=== PATIENT | male | born 1930 | race Caucasian/White ===

== ENCOUNTER 2016-07-05 23:56 | Emergency (ER) | payer SELFPAY ==
--- NOTE | ~2016-07-05 | US85 ---
[facility] A Service of [facility] RADIOLOGY TEXT RESULTS PATIENT: LADARIUS ZALDIVAR LOCATION: [facility] : 31 UNIT #: [id number] AGE: [address]: Maggy Moran MD SEX: M ORDER DR: [id number] [facility] [address] [place], [place] [address] [id number] MR#: [id number] Acc #: [id number] NAME: LADARIUS ZALDIVAR. : 1930 SEX: M STUDY DATE/TIME: 07/05/2016 22:52 UNIT: TUTU ROOM: STUDY DESCRIPTION: [employer] Stdy Attending Physician: Maggy Moran M.D. Ordering Physician: Federico Phipps M.D. MEDICAL IMAGING REPORT This report is preliminary unless electronic signature is present EXAM Right lower extremity Doppler venous ultrasound. DATE 07/05/2016 HISTORY Thigh pain for 1 day. COMPARISON None TECHNIQUE Venous ultrasound examination of the right lower extremity was performed using grayscale, spectral Doppler and color flow Doppler imaging. FINDINGS The examination is negative. There is no evidence of right lower extremity deep venous thrombus from the groin to the lower calf. Visualized greater saphenous vein is also patent. IMPRESSION Negative examination. No evidence of right lower extremity deep venous thrombosis. Dictated by... Padma Bingham M.D. THIS IS AN ELECTRONICALLY VERIFIED REPORT Padma Bingham M.D. at 07/06/2016 10:02 PM [facility] A Service of [facility] RADIOLOGY TEXT RESULTS PATIENT: LADARIUS ZALDIVAR LOCATION: [facility] : 31 UNIT #: [id number] AGE: [address]: Maggy Moran MD SEX: M ORDER DR: TD: 07/06/2016 01:32 JOB #: [id number] MEDICAL IMAGING REPORT Page 1 of 1 COPY
== END 2016-07-06 00:01 | disposition home or self-care (01) ==
LOC: CED 23:56
DX: S76.911A Strain of unspecified muscles, fascia and tendons at thigh level, right thigh, initial encounter (principal); I10 Essential (primary) hypertension; E78.5 Hyperlipidemia, unspecified; X50.1XXA Overexertion from prolonged static or awkward postures, initial encounter
CPT/HCPCS: 93971; 99284

== ENCOUNTER 2016-07-25 13:28 | Inpatient (IN) | payer MEDICARE ==
--- NOTE | ~2016-07-25 | US84 ---
[id number] [facility]. [facility] [address] [place], [place] [address] [id number] I MR#: [id number] Acc #: [id number] NAME: LADARIUS ZALDIVAR : 1930 SEX: M STUDY DATE/TIME: 07/28/2016 15:29 UNIT: C3A PCU ROOM: 323 STUDY DESCRIPTION: US LE Veins Complete Terry Stdy Attending Physician: Farzaneh Dodd M.D. Ordering Physician: Farzaneh Dodd M.D. MEDICAL IMAGING REPORT This report is preliminary unless electronic signature is present EXAM Bilateral lower extremity Doppler venous ultrasound 07/28/2016 HISTORY Fell from bath at rehab. Broke right hip. Bright-arthroplasty 07/19/2016. Right extremity pain and swelling for 10 days. COMPARISON Right lower extreme Doppler venous ultrasound 07/05/2016. TECHNIQUE Venous ultrasound examination of both lower extremities was performed using grayscale, spectral Doppler and color flow Doppler imaging. FINDINGS The examination is negative. There is no evidence of deep venous thrombus from the groin to the lower calf bilaterally. Visualized greater saphenous veins are also patent. Small amount fluid is seen within the right groin soft tissues, 1 component measuring about 2-.8 x 0.8 x 0.6 cm, may represent postoperative seroma. IMPRESSION Negative examination. No evidence of lower extremity deep venous thrombosis. Dictated by... Padma Bingham M.D. THIS IS AN ELECTRONICALLY VERIFIED REPORT Padma Bingham M.D. at 08/01/2016 8:40 AM ISSA/landry TD: 07/28/2016 22:53 JOB #: [id number] MEDICAL IMAGING REPORT Page 1 of 1 COPY
--- NOTE | ~2016-07-25 | CO ---
Unit #: [id number] #: [id number] Patient: LADARIUS ZALDIVAR [id number] [address] [address] [id number] I MR#: [id number] NAME: LADARIUS ZALDIVAR ROOM: 323 Age: 85 Sex: M Admission Date: 07/25/2016 : 1930 Attending Physician: Buck Tan M.D. [facility] Consult[facility] Date: 07/26/2016 CONSULTATION REPORT CHIEF COMPLAINT Fall from bed at rehab. HISTORY OF PRESENT ILLNESS This is an 85-year-old white male with a past medical history of hypertension, hyperlipidemia, and degenerative disk disease, presented to the emergency room yesterday status post fall from bed at rehab. The patient is unable to hold conversation, therefore the history was taken from the History and Physical from the emergency room. It appears patient was hospitalized at [facility] 07/18/2016 for a right femoral neck fracture and underwent surgery 07/19/2016. His family reports the patient has been confused since his surgery. He was/has been at [facility] for rehabilitation. PAST MEDICAL HISTORY 1. Admitted at [facility] for a right femoral neck fracture 07/18/2016. Right anterior hip hemiarthroplasty on 07/19/2016 and discharged to rehab where he is at currently. 2. Hypertension. 3. Hyperlipidemia. 4. Degenerative disk disease. PAST SURGICAL HISTORY 1. Eye surgery. 2. Right hip surgery. HOME MEDICATIONS 1. Pantoprazole 40 mg daily. 2. Prednisone 20 mg daily. 3. Dorzolamide and timolol eye drops. 4. Norvasc 10 mg daily. 5. Cyanocobalamin one-half tab daily. 6. Prednisone eye drops q.i.d. 7. Augmentin t.i.d. 8. Eliquis 2.5 mg tablet b.i.d. 9. Aspirin 325 mg b.i.d. 10. Docusate 100 mg b.i.d. 11. Artificial Tears b.i.d. 12. Lipitor 20 mg daily. 13. ProAir q.6 h. p.r.n. ALLERGIES No known drug allergies. Unit #: [id number] #: [id number] Patient: LADARIUS ZALDIVAR SOCIAL HISTORY Patient in rehab. Code status is FULL CODE at the emergency room. FAMILY HISTORY Not available or not applicable. REVIEW OF SYSTEMS Unobtainable. PHYSICAL EXAMINATION VITAL SIGNS: Temperature 98.2, pulse 98, respirations 22, O2 96%, blood pressure 120/69. GENERAL: Lethargic white male who is not oriented. LUNGS: Breathing nonlabored. HEART: Regular rate and rhythm. EXTREMITIES: Right hip with Steri-Strips in place. Incision is clean, dry and intact, nontender to palpation. No ecchymosis or erythema or evidence of infection. PSYCHIATRIC: Normal mood/affect. DIAGNOSTIC STUDIES LABORATORY: CBC within normal limits. Vitamin B12 and folate within normal limits. CMP within normal limits. Total CK within normal limits. TSH within normal limits. Troponin within normal limits. Lactic acid within normal limits. IMAGING: Right hip x-ray shows stable bipolar hip prosthesis, acetabular component also stable. No evidence of hardware loosening or malalignment. CT of the head with no acute findings. Chest x-ray with increased airspace opacities. ASSESSMENT AND PLAN This is an 85-year-old white male with altered mental status, status post fall at rehab and eight days status post right hip arthroplasty. PLAN 1. Continue fall precautions. May weight bear as tolerated. 2. Follow up with Dr. Leonard at [facility] as soon as possible post discharge. Stable to discharge from orthopedic standpoint. Dictated by... Opal Castellon PA-C for Kamla Trujillo/home TD: 07/26/2016 16:07 JOB #: [id number] Unit #: [id number] #: [id number] Patient: LADARIUS ZADLIVAR CONSULTATION REPORT Page 1 of 1 X OPAL CASTELLON CONSULTATION REPORT
--- NOTE | ~2016-07-25 | CR72 ---
[facility] A Service of [facility] RADIOLOGY TEXT RESULTS PATIENT: LADARIUS ZALDIVAR LOCATION: [facility] 323-01 : 31 UNIT #: [id number] AGE: [address]: Buck Tan MD SEX: M ORDER DR: [id number] [facility] [address] [place], [place] [address] [id number] I MR#: [id number] Acc #: [id number] NAME: LADARIUS ZALDIVAR. : 1930 SEX: M STUDY DATE/TIME: 07/25/2016 18:08 UNIT: [facility] ROOM: 65881 STUDY DESCRIPTION: CR Chest Single View Portable Attending Physician: Aby Prieto M.D. Referring Physician: Reymundo Rubi M.D. Ordering Physician: Federico Phipps M.D. [facility] MED[facility] IMAGING REPORT This report is preliminary unless electronic signature is present EXAM Portable chest x-ray, 07/25/2016. HISTORY Cough. Yesterday fell. Surgery 1 week ago. FINDINGS 2 AP right anterior oblique views of the chest are presented. No prior chest radiographs for comparison. The heart is probably mildly enlarged. No clearly acute bony abnormalities seen. Lung volumes moderate. Increased interstitial and airspace markings throughout the right lung more pronounced at the right lung base with less pronounced patchy densities at the left lung base. The appearance is somewhat nonspecific. The possibility of asymmetric pulmonary edema with interstitial and airspace components could be considered. Bilateral pneumonia more extensive and more pronounced in the right lung than left could be considered as well. If the patient is showing clinical signs and symptoms of pneumonia, given distribution and reported history, correlate with any clinical concern for aspiration. There is no dense airspace consolidation. No pleural effusion, pneumothorax or suspicious nodule. Follow up to radiographic resolution is recommended. Dictated by... Erick Munroe M.D. THIS IS AN ELECTRONICALLY VERIFIED REPORT Erick Munroe M.D. at 07/26/2016 10:26 PM WARD/quin TD: 07/26/2016 00:07 [facility] A Service of [facility] RADIOLOGY TEXT RESULTS PATIENT: LADARIUS ZALDIVAR LOCATION: [facility] 323-01 : 31 UNIT #: [id number] AGE: [address]: Buck Tan MD SEX: M ORDER DR: JOB #: [id number] MEDICAL IMAGING REPORT Page 1 of 1 COPY
--- NOTE | ~2016-07-25 | CR151 ---
[facility] A Service of [facility] & [facility] RADIOLOGY TEXT RESULTS PATIENT: LADARIUS ZALDIVAR LOCATION: A 323-01 : 31 UNIT #: [id number] AGE: [address]: Buck Tan MD SEX: M ORDER DR: [id number] [facility] [address] [place], [place] [address] [id number] I MR#: [id number] Acc #: [id number] NAME: LADARIUS ZALDIVAR. : 1930 SEX: M STUDY DATE/TIME: 07/25/2016 17:59 UNIT: CEDOF ROOM: 70458 STUDY DESCRIPTION: CR Hip Min 2 Views Rt Attending Physician: Aby Prieto M.D. Ordering Physician: Federico Phipps M.D. Primary Care Physician: [facility] MEDICAL IMAGING REPORT This report is preliminary unless electronic signature is present EXAM Right hip series, 07/25/2016 HISTORY Yesterday fall. Right hip surgery 1 week ago. FINDINGS AP radiograph of the pelvis is presented with attempted frog-leg views of the right hip. The biomass plant manager indicates the patient was unable to fully assist with the examination. I have no prior studies for comparison. Diminished bony mineralization. Mild degenerative changes lower lumbar spine. Bony ring of pelvis is intact. Visualized left femur intact with mild narrowing left hip joint. The patient is status post right hip arthroplasty. The acetabular component has an orientation slightly rotated in a counterclockwise direction; however, this could be the desired postoperative positioning in this patient. I have no prior studies for comparison. Comparison with prior study is recommended given patient's reported trauma. The orthopedic hardware remains normally located. There is no evidence of acute post-traumatic right femoral fracture. The periarticular soft tissues are unremarkable. Visualized bowel gas pattern is normal. Dictated by... Erick Munroe M.D. THIS IS AN ELECTRONICALLY VERIFIED REPORT Erick Munroe M.D. at 07/26/2016 10:26 PM WARD/frances TD: 07/26/2016 00:08 JOB #: [id number] [facility] A Service of [facility] & [facility] RADIOLOGY TEXT RESULTS PATIENT: LADARIUS ZALDIVAR LOCATION: [facility] 323-01 : 31 UNIT #: [id number] AGE: [address]: Buck Tan MD SEX: M ORDER DR: MEDICAL IMAGING REPORT Page 1 of 1 COPY
--- NOTE | ~2016-07-25 | CR72 ---
[facility] A Service of [facility] RADIOLOGY TEXT RESULTS PATIENT: LADARIUS ZALDIVAR LOCATION: [facility] 323- : 31 UNIT #: [id number] AGE: [address]: Buck Tan MD SEX: M ORDER DR: [id number] [facility] [address] [place], [place] [address] [id number] I MR#: [id number] Acc #: [id number] NAME: LADARIUS ZALDIVAR : 1930 SEX: M STUDY DATE/TIME: 07/27/2016625 UNIT: [address] ROOM: [facility] STUDY DESCRIPTION: CR Chest Single View Portable Attending Physician: Buck Tan M.D. Ordering Physician: Buck Tan M.D. Primary Care Phys[facility] MED[facility] IMAGING REPORT This report is preliminary unless electronic signature is present EXAM Chest, portable, 07/27/2016, 0626 hours. CLINICAL HISTORY 85-year-old man fell who fell today and yesterday with confusion and altered mental status. COMPARISON 07/25/2016 FINDINGS Portable upright chest demonstrates stable [id number] cardiomegaly and tortuous aorta. There is pulmonary venous distension. There is mild pulmonary venous distension but overall decrease in interstitial prominence in the right lung compared to the left lung since 07/25/2016. IMPRESSION Stable cardiomegaly and tortuous aorta. There is mild pulmonary venous distension with overall decrease in bilateral interstitial changes since 07/25/2016, likely improving edema. There is no effusion or pneumothorax. Dictated by... Fabi Pang M.D. THIS IS AN ELECTRONICALLY VERIFIED REPORT Fabi Pang M.D. at 07/27/2016 2:35 PM HEBER/debbie TD: 07/27/2016 10:05 JOB #: [id number] [facility] A Service [facility] RADIOLOGY TEXT RESULTS PATIENT: LADARIUS ZALDIVAR LOCATION: [facility] 323-01 : 31 UNIT #: [id number] AGE: [address]: Buck Tan MD SEX: M ORDER DR: MEDICAL IMAGING REPORT Page 1 of 1 COPY
--- NOTE | ~2016-07-25 | CT71 ---
[facility] A Service of [facility] RADIOLOGY TEXT RESULTS PATIENT: LADARIUS ZALDIVAR LOCATION: [facility] : 31 UNIT #: [id number] AGE: [address]: Aby Prieto MD SEX: M ORDER DR: [id number] [facility] [address] [place], [place] [address] [id number] I MR#: [id number] Acc #: [id number] NAME: LADARIUS ZALDIVAR. : 1930 SEX: M STUDY DATE/TIME: 07/25/2016 15:47 UNIT: C[facility] ROOM: 74729 STUDY DESCRIPTION: CT Head Wo Contrast Attending Physician: Aby Prieto M.D. Ordering Physician: Yfn Bryson M.D. MEDICAL IMAGING REPORT This report is preliminary unless electronic signature is present EXAM CT head 07/25/2016 HISTORY History fell from bed today. New onset confusion, headache. TECHNIQUE CT head performed skull base through vertex without intravenous contrast. This CT exam was performed with one or more of the following radiation dose reduction techniques: automatic exposure control, adjustment of mA and/or kV according to patient size, and iterative reconstruction. COMPARISON STUDIES No prior CTs of head for comparison at this institution. FINDINGS Brainstem is unremarkable. Cerebellum and cerebral hemispheres show overall preservation of johnson matter-white matter differentiation. No intracranial hemorrhage. No evidence of acute cortical ischemia. Midline structures are nondisplaced. The basal ganglia are intact. The ventricles, cisterns and sulci show mild generalized enlargement consistent with mild generalized atrophy. No intra- or extraaxial mass effect or abnormal intracranial fluid collection. There are cavernous carotid arterial calcifications. Visualized intraorbital soft tissues unremarkable. The visualized paranasal sinuses and mastoid air cells are clear. No fracture. No extracranial acute appearing soft tissue abnormality. Some images degraded by motion artifact. IMPRESSION [facility] A Service of [facility] RADIOLOGY TEXT RESULTS PATIENT: LADARIUS ZALDIVAR LOCATION: [facility] : 31 UNIT #: [id number] AGE: [address]: Aby Prieto MD SEX: M ORDER DR: 1. Motion-degraded study. No acute abnormalities seen in the brain. If the patient has ongoing neurologic symptoms, follow-up imaging would be recommended. 2. Mild atrophic change. 3. Cavernous carotid arterial calcifications. 4. No fracture. Dictated by... Erick Munroe M.D. THIS IS AN ELECTRONICALLY VERIFIED REPORT Erick Munroe M.D. at 07/25/2016 10:50 PM WARD/landry TD: 07/25/2016 21:45 JOB #: [id number] MEDICAL IMAGING REPORT Page 1 of 1 COPY
--- NOTE | ~2016-07-25 | DS ---
Unit #: [id number] #: [id number] Patient: LADARIUS ZALDIVAR [id number] [facility]. [place] [id number] [facility]. [place], [place] [address] [id number] I MR#: [id number] NAME: LADARIUS ZALDIVAR. ROOM: 573 Age: 85 Sex: M Admission Date: 07/25/2016 : 1930 Discharge Date: 08/01/2016 Attending Physician: Farzaneh Dodd M.D. Primary Care Physician: [facility]. DISCHARGE SUMMARY ADDENDUM Please make note that we are still waiting for rehab bed and that is why the patient's discharge is on hold. Hopefully the patient will have a bed today and will be transferred to rehab. His lab work today revealed sodium 137, potassium 3.3 and creatinine 0.9. We will give him a dose of potassium. We will also try to wean off his oxygen. I have tried to call the patient's daughter again, but I discussed with the laboratory animal caretaker who will follow up. Dictated by... Kamla Christopher TD: 08/01/2016 11:25 JOB #: [id number] DISCHARGE SUMMARY Page 1 of 1 X Farzaneh Dodd MD DISCHARGE SUMMARY
--- NOTE | ~2016-07-25 | DS ---
Unit #: [id number] #: [id number] Patient: LADARIUS ZALDIVAR [id number] [facility]. [address] [address] [id number] I MR#: [id number] NAME: LADARIUS ZALDIVAR. ROOM: 573 Age: 85 Sex: M Admission Date: 07/25/2016 : 1930 Discharge Date: 07/30/2016 Attending Physician: Farzaneh Dodd M.D. Primary Care Physician: [facility]. DISCHARGE SUMMARY DIAGNOSIS ON ADMISSION Increased confusion. DIAGNOSES ON DISCHARGE 1. Status post fall, improved. 2. Acute toxic metabolic encephalopathy, improved. 3. Acute bronchitis. 4. History of recent right hip arthroplasty. 5. Sepsis. 6. Hypertension. 7. Hyperlipidemia. 8. Degenerative disk disease. 9. Probable pneumonia. DIAGNOSTIC STUDIES LABS: The patient's creatinine is 0.7, sodium 141, potassium 3.6. B12 level was 371. TSH was 2.23. WBC is 9.8, hemoglobin is 12.4, platelet count is 276. Blood culture did not reveal any growth so far. IMAGING: Bilateral lower extremity venous Dopplers were negative. CT chest revealed trace pleural effusion in lung bases; bilateral lower lobe subsegmental atelectasis. HOSPITAL COURSE This 85-year-old male was admitted from [facility] after having a fall with increased confusion. Details are as per admission H and P. Recent right hip fracture and surgery. The patient was seen by surgery in consultation, and no acute issues were found, and it was advised to continue the rehab. Altered mental status. It was likely secondary to acute toxic metabolic encephalopathy. It has improved. Probable pneumonia. Patient had probable pneumonia. Was treated with antibiotics and is doing much better now. Bilateral leg swelling. Venous Dopplers were negative. We will have the patient on low-dose Lasix. Today, the patient is comfortable, is not in any acute distress. He is hard of hearing but follows commands. Unit #: [id number] #: [id number] Patient: LADARIUS ZALDIVAR CONDITION Stable. ACTIVITIES As tolerated. DISCHARGE MEDICATIONS 1. DuoNeb Mini-Neb treatment q.4 hours p.r.n. 2. Eliquis 2.5 mg p.o. b.i.d. per ortho. 3. Colace 100 mg p.o. daily. 4. Lasix 40 mg every morning. 5. Lipitor 20 mg p.o. q.h.s. 6. Protonix 40 mg daily. 7. Vitamin B12 - 50 mcg p.o. daily. 8. Doxycycline 100 mg p.o. b.i.d. for 3 days. NOTE: Please make note that the patient is on Eliquis, which I am not sure if he was taking it prior to admission or is for DVT prophylaxis. Kindly clarify it with the patient's primary care physician or family. I tried to call the patient's family. I have discontinued the patient's enteric-coated aspirin 325 mg b.i.d. because of being on Eliquis. If the patient's Eliquis is discontinued in the future, then he should be restarted on aspirin. DISPOSITION Patient will be transferred to rehab unit. NOTE: Please feel free to call us if there are questions regarding this hospitalization. Dictated by... Kamla Christopher/pamela TD: 07/30/2016 11:16 JOB #: [id number] DISCHARGE SUMMARY Page 1 of 1 X Farzaneh Dodd MD X DISCHARGE SUMMARY
--- NOTE | ~2016-07-25 | CT57 ---
[facility] A Service of [facility] RADIOLOGY TEXT RESULTS PATIENT: LADARIUS ZALDIVAR LOCATION: [facility] : 31 UNIT #: [id number] AGE: [address]: Farzaneh oDdd MD SEX: M ORDER DR: [id number] [facility] [address] [place], [place] [address] [id number] I MR#: [id number] Acc #: [id number] NAME: LADARIUS ZALDIVAR : 1930 SEX: M STUDY DATE/TIME: 07/27/2016 11:50 UNIT: A PCU ROOM: 323 STUDY DESCRIPTION: CT Chest Wo Cont Attending Physician: Buck Tan M.D. Ordering Physician: Buck Tan M.D. Primary Care Physician: [facility], MEDICAL IMAGING REPORT This report is preliminary unless electronic signature is present EXAM CT chest without contrast. Pleural fluid cells. There are [id number] CT of the chest without contrast INDICATIONS Minus pneumonia and shortness of breath today. TECHNIQUE CT of the chest was performed without contrast. Coronal and sagittal reformatted images were obtained. No comparisons are available. This CT exam was performed with one or more of the following radiation dose reduction techniques: automatic exposure control, adjustment of mA and/or kV according to patient size, and iterative reconstruction. FINDINGS There is trace pleural fluid in the lung bases. There is bilateral lower lobe atelectasis. There is no lymphadenopathy. There is a large calcified left hilar lymph node. Coronary artery calcifications. Moderate sized hiatal hernia containing mostly fat. Limited imaging of the upper abdomen is unremarkable. The bone windows are unremarkable. IMPRESSION Trace pleural fluid. The lung bases with bilateral lower lobe subsegmental atelectasis [facility] A Service [facility] RADIOLOGY TEXT RESULTS PATIENT: LADARIUS ZALDIVAR LOCATION: [facility] : 31 UNIT #: [id number] AGE: [address]: Farzaneh Dodd MD SEX: M ORDER DR: Dictated by... Emerson Leonard M.D. THIS IS AN ELECTRONICALLY VERIFIED REPORT Emerson Leonard M.D. at 07/28/2016 9:03 AM HERIBERTO/lianna TD: 07/27/2016 13:31 JOB #: [id number] MEDICAL IMAGING REPORT Page 1 of 1 COPY
--- NOTE | ~2016-07-25 | HP ---
Unit #: [id number] #: [id number] Patient: LADARIUS ZALDIVAR [id number] [facility]. [place], [place] [address] [id number] MR#: [id number] NAME: LADARIUS ZALDIVAR. ROOM: 75205 Age: 85 Sex: M Admission Date: 07/25/2016 : 1930 Attending Physician: Aby Prieto M.D. [facility] HISTORY AND PHYSICAL CHIEF COMPLAINT Fall from bed at [facility]. HISTORY OF PRESENT ILLNESS The patient is an 85-year-old male with a past medical history of hypertension, hyperlipidemia, and degenerative disc disease, who presented to the emergency department from rehab for evaluation of the above. History is obtained from chart review and discussion with ER staff due to the patient's altered mental status. There is currently no family at bedside. Will talk to family when available. The patient was apparently hospitalized at [facility] on July 18, 2016, for right femoral neck fracture. He underwent right hip arthroplasty on July 19, 2016. He was discharged to [facility] for rehab. Per ER documentation, the family states that the patient has been confused since surgery. Today, he slid out of his wheelchair to the ground. He was brought to the emergency department for further evaluation. In the emergency department, the patient was somewhat combative and agitated. He is currently in restraints. He received fentanyl 25 mcg, as well as 0.5 mg of Ativan. At the time of my evaluation, he is lethargic. He is moving all extremities. He is unable to provide a history. In the emergency department, right hip x-ray was done and showed that the patient is status post right hip arthroplasty. The radiologist comments that the acetabular component is slightly rotated. Chest x-ray shows findings concerning for possible pneumonia with airspace opacities bilaterally, right greater than left. CT of the head shows nothing acute. Notable laboratory data includes a white blood cell count of 16.4. He is being admitted to [facility] for evaluation and further treatment. In addition to the above medications, the patient received a total of one liter of normal saline in the emergency department. One gram of Rocephin is ordered. PAST MEDICAL HISTORY 1. Admission to [facility] July 18, 2016, for right femoral neck fracture. He underwent right anterior hip hemiarthroplasty on July 19, 2016. He was discharged to rehab where he is currently. 2. Hypertension. 3. Hyperlipidemia. 4. Degenerative disc disease. PAST SURGICAL HISTORY 1. Eye surgery. Unit #: [id number] #: [id number] Patient: LADARIUS ZALDIVAR 2. Right hip surgery. SOCIAL HISTORY The patient is currently at rehab. His code status is a Full Code per ER documentation. FAMILY HISTORY Currently obtainable. ALLERGIES No known allergies. HOME MEDICATIONS 1. Pantoprazole 40 mg daily. 2. Prednisone 20 mg daily. 3. Dorzolamide and timolol eyedrops daily. 4. Norvasc 10 mg daily. 5. Cyanocobalamin 1/2 tablet daily. 6. Prednisolone eyedrops 4 times daily. 7. Augmentin 3 times daily. 8. Eliquis 2.5 mg twice daily. 9. Aspirin 325 mg twice daily. 10. Docusate 100 mg twice daily. 11. Artificial Tears twice daily. 12. Lipitor 20 mg daily. 13. ProAir q.6 hours p.r.n. REVIEW OF SYSTEMS A complete review of systems is unobtainable from the patient due to altered mental status. PHYSICAL EXAMINATION VITAL SIGNS: Temperature is 98, pulse 120, respirations 24, blood pressure 118/69, and oxygen saturation 92% on room air. GENERAL: Patient is a male who is lethargic. HEENT: Head is atraumatic. Mucous membranes are moist. NECK: Supple. Trachea is midline. CARDIOVASCULAR: Regular rate and rhythm. LUNGS: A few scattered rhonchi. Breathing is not labored. ABDOMEN: Soft and nontender with bowel sounds present in all four quadrants. EXTREMITIES: No pedal edema. The patient does have an incision in the right hip area that is clean, dry, and intact. NEUROLOGIC: Patient was apparently quite agitated in the emergency department requiring restraints. He was moving all extremities. He is currently lethargic. PSYCHIATRIC: Unable to assess. SKIN: Skin of examined areas is warm and dry. DIAGNOSTIC STUDIES LABORATORY: Comprehensive metabolic panel is notable for a glucose of 115 and albumin is 3.3. Complete blood count notable for a white blood cell count of 16.4. Urinalysis is essentially negative. Urine toxicology screen is negative. IMAGING: Right hip x-ray shows that the patient is status post right hip arthroplasty. The acetabular component is slightly rotated. CT of the head shows nothing acute. Chest x-ray shows increased airspace opacities Unit #: [id number] #: [id number] Patient: LADARIUS ZALDIVAR bilaterally, right greater than left. ASSESSMENT The patient is an 85-year-old male with: 1. Altered mental status. 2. Status post fall at rehab. 3. Status post right hip arthroplasty (July 19, 2016). The x-ray today showed that the acetabular component was slightly rotated. The emergency room physician, Dr. Medellin, spoke with Dr. Leonard at [facility] regarding the x-ray findings. He stated that there was no reason for transfer. 4. Healthcare-associated pneumonia. Rocephin has been ordered. 5. Sepsis. 6. Hypertension. 7. Hyperlipidemia. 8. Degenerative disc disease. PLAN 1. Admit to intermediate level. 2. N.p.o. until speech evaluation. 3. Speech Therapy to evaluate and treat. 4. Normal saline at 75 mL/hour. 5. TSH, B12, and folate. 6. Neuro checks. 7. Bedrest. 8. Fall precautions. 9. Blood cultures x2. 10. Sputum culture and sensitivity. 11. Supplemental oxygen. 12. Procalcitonin level. 13. Streptococcal and legionella urine antigens. 14. DuoNebs q.4 hours p.r.n. 15. Sepsis protocol with stat lactic acid. 16. Vancomycin IV, tobramycin IV, and Zosyn IV for healthcare-associated pneumonia pending further workup. 17. Check EKG and cardiac enzymes. 18. Get postop hip x-ray from [facility] for comparison with current hip x-ray. 19. Consult Dr. Kay regarding abnormal hip x-ray. 20. Repeat labs in the morning. 21. Additional workup and consultants based on above. 1. Dictated by Aby Prieto M.D. GUADALUPE/joyce TD: 07/25/2016 21:11 JOB #: [id number] Unit #: [id number] #: [id number] Patient: LADARIUS ZALDIVAR HISTORY AND PHYSICAL Page 1 of 1 X Aby Prieto MD X HISTORY AND PHYSICAL
--- NOTE | ~2016-07-25 | EKG ---
PATIENT: LADARIUS ZALDIVAR UNIT #: [id number] Ventricular Rate: 94 BPM Atrial Rate: 94 BPM P-R Interval: 214 ms QRS Duration: 130 ms Q-T Interval: 410 ms QTC Calculation(Bezet): 512 ms P [place]: 64 degrees Calculated R [place]: 44 degrees Calculated T [place]: 15 degrees Diagnosis Line: Sinus rhythm with 1st degree A-V block Diagnosis Line: Right bundle branch block with repolarization Diagnosis Line: abnormality Baseline wander Diagnosis Line: Abnormal ECG Diagnosis Line: Diagnosis Line: Confirmed by CHI MORENO MD ([id number]) on 07/27/2016 Diagnosis Line: 5:57:14 PM INTERPRETING MD: JOSH DUTTON
[2016-07-25] MEDS ORDERED: PANTOPRAZOLE SO40 MG PO (14:19)
[2016-07-25] MEDS ORDERED: DORZOLAMIDE-TIM10 ML OU (14:20)
[2016-07-25] MEDS ORDERED: DELTASONE20 MG PO (14:20)
[2016-07-25] MEDS ORDERED: NORVASC10 MG PO (14:21)
[2016-07-25] MEDS ORDERED: CYANOCOBALAMI100 MCG PO (14:22)
[2016-07-25] MEDS ORDERED: PRED FORTE1 ML OU (14:23)
[2016-07-25] MEDS ORDERED: ASPIRIN ENTERI325 M1 PO (14:24)
[2016-07-25] MEDS ORDERED: AMOX-CLAV 500-1 EACH PO (14:24)
[2016-07-25] MEDS ORDERED: ELIQUIS2.5 MG PO (14:24)
[2016-07-25] MEDS ORDERED: ARTIFICIAL TEAR15 M9 OU (14:25)
[2016-07-25] MEDS ORDERED: DOC-Q-LACE100 MG PO (14:25)
[2016-07-25] MEDS ORDERED: LIPITOR20 MG PO (14:26)
[2016-07-25] MEDS ORDERED: PROAIR HFA8.5 GM PO (14:27)
[2016-07-25 14:56] LABS: BASOPHIL% 0.3 % (0-2.5); HEMATOCRIT 44.9 % (38.0-50.0); HEMOGLOBIN 14.2 gm/dL (13.0-16.0); LYMPHOCYTE# 0.5 X10e3 (1.0-3.5); LYMPHOCYTE% 3.1 % (17.0-45.0); MEAN CELL VOLUME 92.1 FL (83-96); MEAN CORPUSCULAR HEMOGLOBIN 29.1 PG (28-34); MEAN CORPUSCULAR HGB CONC 31.6 g/dL (30-36); MONOCYTE# 1.1 X10e3 (0-1.0); MONOCYTE% 6.5 % (3.0-12.0); NEUTROPHIL# 14.7 X10e3 (1.5-7.1); NEUTROPHIL% 90.1 % (40-75); PLATELET COUNT 342 X10e3 (140-420); RED BLOOD COUNT 4.88 X10e (3.90-5.60); RED CELL DISTRIBUTION WIDTH 14.7 % (11.0-15.5); WHITE BLOOD COUNT 16.4 X10e3 (4.0-10.5)
[2016-07-25 15:01] LABS: DIFF IND YES
[2016-07-25 15:15] LABS: ALBUMIN SERUM 3.3 g/dL (3.5-5.0); BILIRUBIN,TOTAL 1.4 mg/dL (0.2-2.0); CALCIUM SERUM 9.1 mg/dL (8.4-10.2); GLOM FILT RATE Estimated 68.8 mL/min (>60); POTASSIUM 5.1 mmol/L (3.5-5.1); PROTEIN TOTAL SERUM 7.3 g/dL (6.0-8.3)
[2016-07-25 15:33] LABS: URINE SOURCE CLEAN CATCH
[2016-07-25 15:38] LABS: URINE APPEARANCE CLEAR; URINE BILIRUBIN NEG (NEG); URINE BLOOD NEG (NEG); URINE COLOR YELLOW; URINE GLUCOSE NEG (NEG); URINE KETONE NEG (NEG); URINE LEUKOCYTE ESTERASE NEG (NEG); URINE NITRATE NEG (NEG); URINE PH 7.5 (5-8); URINE PROTEIN NEG (NEG); URINE SPECIFIC GRAVITY 1.015 (1.003-1.035)
[2016-07-25 15:41] LABS: ANISOCYTOSIS SL
[2016-07-25 15:45] LABS: PLATELET ESTIMATE NORMAL (NORMAL)
[2016-07-25 15:47] LABS: CULTURE INDICATED? NO
[2016-07-25 15:49] LABS: AMPHETAMINE NEG (NEG); BARBITURATES NEG (NEG); BENZODIAZEPINES NEG (NEG); COCAINE NEG (NEG); MARIJUANA NEG (NEG); OPIATES NEG (NEG); TRICYCLIC ANTIDEPRESSANTS NEG (NEG); U METHADONE NEG (NEG)
[2016-07-25 21:41] LABS: PROCALCITONIN 0.16 NG/ML
[2016-07-25 21:43] LABS: %MB 3.5 % (0.0-4.0); MB 3.3 ng/ml
[2016-07-26 03:22] LABS: BASOPHIL% 0.1 % (0-2.5); EOSINOPHIL# 0.1 X10e3 (0-0.7); EOSINOPHIL% 0.8 % (0.0-7.0); HEMATOCRIT 39.6 % (38.0-50.0); HEMOGLOBIN 12.5 gm/dL (13.0-16.0); LYMPHOCYTE% 9.4 % (17.0-45.0); MEAN CELL VOLUME 93.2 FL (83-96); MEAN CORPUSCULAR HEMOGLOBIN 29.4 PG (28-34); MEAN CORPUSCULAR HGB CONC 31.5 g/dL (30-36); MEAN PLATELET VOLUME 8.5 FL (6.5-11.5); MONOCYTE# 1.2 X10e3 (0-1.0); MONOCYTE% 11.6 % (3.0-12.0); NEUTROPHIL# 8.2 X10e3 (1.5-7.1); NEUTROPHIL% 78.1 % (40-75); PLATELET COUNT 291 X10e3 (140-420); RED BLOOD COUNT 4.24 X10e (3.90-5.60); WHITE BLOOD COUNT 10.5 X10e3 (4.0-10.5)
[2016-07-26 03:23] LABS: DIFF IND NO
[2016-07-26 04:03] LABS: ALBUMIN SERUM 2.7 g/dL (3.5-5.0); BILIRUBIN,TOTAL 0.9 mg/dL (0.2-2.0); CALCIUM SERUM 8.1 mg/dL (8.4-10.2); CREATININE SERUM 0.9 mg/dL (0.6-1.4); GLOM FILT RATE Estimated 78.2 mL/min (>60); POTASSIUM 4.1 mmol/L (3.5-5.1); PROTEIN TOTAL SERUM 6.1 g/dL (6.0-8.3)
[2016-07-26 04:06] LABS: %MB 5.5 % (0.0-4.0); MB 3.6 ng/ml
[2016-07-26 04:27] LABS: FOLATE (FOLIC ACID) 11.4 ng/mL (>5.8)
[2016-07-26 12:45] LABS: CK TOTAL 56 IU/L (36-174)
[2016-07-27 10:07] LABS: HEMATOCRIT 39.9 % (38.0-50.0); HEMOGLOBIN 12.4 gm/dL (13.0-16.0); MEAN CELL VOLUME 93.8 FL (83-96); MEAN CORPUSCULAR HEMOGLOBIN 29.1 PG (28-34); MEAN PLATELET VOLUME 8.8 FL (6.5-11.5); RED BLOOD COUNT 4.25 X10e (3.90-5.60); RED CELL DISTRIBUTION WIDTH 15.4 % (11.0-15.5); WHITE BLOOD COUNT 9.8 X10e3 (4.0-10.5)
[2016-07-27 10:40] LABS: BUN/CREATININE RATIO 17.14; CALCIUM SERUM 8.2 mg/dL (8.4-10.2); CREATININE SERUM 0.7 mg/dL (0.6-1.4); GLOM FILT RATE Estimated 86.7 mL/min (>60)
[2016-07-29 10:38] LABS: BUN/CREATININE RATIO 18.57; CALCIUM SERUM 8.5 mg/dL (8.4-10.2); CREATININE SERUM 0.7 mg/dL (0.6-1.4); GLOM FILT RATE Estimated 86.7 mL/min (>60); POTASSIUM 3.6 mmol/L (3.5-5.1)
[2016-07-30 13:58] LABS: LEGIONELLA AG URINE NEG (NEG)
[2016-07-31 08:39] LABS: BUN/CREATININE RATIO 14.28; CALCIUM SERUM 8.3 mg/dL (8.4-10.2); CREATININE SERUM 0.7 mg/dL (0.6-1.4); GLOM FILT RATE Estimated 86.7 mL/min (>60); POTASSIUM 3.1 mmol/L (3.5-5.1)
[2016-08-01 08:58] LABS: BUN/CREATININE RATIO 12.22; CALCIUM SERUM 8.3 mg/dL (8.4-10.2); CREATININE SERUM 0.9 mg/dL (0.6-1.4); GLOM FILT RATE Estimated 78.2 mL/min (>60); POTASSIUM 3.3 mmol/L (3.5-5.1)
== END 2016-08-01 16:56 | DRG 871 ==
LOC: CED 13:28 → CEDOF 20:10 → C5C 20:10 → CEDOF 07-26 06:47 → C3A PCU 07-26 07:40 → C5C 07-29 07:28
PROVIDERS: Emergency Medicine; Family Medicine; Internal Medicine
DX: A41.9 Sepsis, unspecified organism (principal); J18.9 Pneumonia, unspecified organism; G92 Toxic encephalopathy; Y95 Nosocomial condition; J20.9 Acute bronchitis, unspecified; I10 Essential (primary) hypertension; E78.5 Hyperlipidemia, unspecified; M19.90 Unspecified osteoarthritis, unspecified site; M79.89 Other specified soft tissue disorders; H91.90 Unspecified hearing loss, unspecified ear; Z91.81 History of falling; Z96.641 Presence of right artificial hip joint; E87.6 Hypokalemia; M25.559 Pain in unspecified hip
CPT/HCPCS: 36415; 51701; 70450; 71010; 71250; 73502; 74230; 80048; 80053; 80200; 80202; 80307; 81003; 82308; 82550; 82553; 82607; 82746; 82947; 83605; 84443; 84484; 85025; 85027; 87040; 87070; 87205; 87449; 87899; 92526; 92610; 92611; 93005; 93970; 94640; 94760; 96361; 96374; 96375; 97163; 97530; 99285; G8978-GP; G8979-GP; G8980-GP; G8996-GN; G8997-GN; G8998-GN; J2060; J2405; J2543; J3010; J3260; J3370

== ENCOUNTER 2016-08-07 02:09 | Inpatient (IN) | payer MEDICARE ==
--- NOTE | ~2016-08-07 | CO ---
Unit #: [id number] #: [id number] Patient: LADARIUS ZALDIVAR [id number] [facility]. [place], [place] [address] [id number] MR#: [id number] NAME: LADARIUS ZALDIVAR. ROOM: 323 Age: 85 Sex: M Admission Date: 08/07/2016 : 1930 Attending Physician: Aby Prieto M.D. Primary Care Physician: Trell Gonsales Jr., M.D. Consultation Date: 08/07/2016 CONSULTATION REPORT REASON FOR CONSULTATION Atrial fibrillation/atrial flutter. HISTORY OF PRESENT ILLNESS This is an 85-year-old white male, with a past medical history of recent admission to [facility] from July 25 to August 01, 2016, for a fall, acute bronchitis, possible pneumonia, sepsis, and toxic metabolic encephalopathy. The patient recently was admitted to [facility] for a fall and right hip fracture. He underwent a right hip arthroplasty on July 19, 2016. Additional past medical history includes hypertension, hyperlipidemia, GERD, degenerative disk disease, glaucoma, and reformed tobacco abuse. He presented to [facility] from [facility] with a recurrent fall. The patient was reportedly fell out of bed. He denies any dizziness, palpitations, or syncope. There are no reports of shortness of breath or chest pain. He has had some swelling in his lower extremities, worse on the right side, after his hip surgery. He has been taking Lasix and reportedly a potassium supplement, although it is not listed on the home medication list. In the emergency department, his potassium was low at 2.3. Renal function was normal. Albumin was 3.2. Initial cardiac enzymes were negative. EKG revealed atrial flutter with a ventricular rate of 147 beats per minute with a right bundle-branch block. The patient was noted to have a right bundle-branch block in July 2016. His potassium was supplemented. He was started on amiodarone drip due to atrial flutter. He was continued on Eliquis per previous dosing. PAST MEDICAL HISTORY 1. Recent admission to [facility] from July 25 through August 01, 2016 for a fall, acute bronchitis, sepsis, possible pneumonia, and toxic metabolic encephalopathy. 2. Previous right hip arthroplasty on July 19, 2016 due to a fall. 3. Hypertension. 4. Hyperlipidemia. 5. GERD. 6. Degenerative disk disease. 7. Glaucoma. 8. Hard of hearing with use of hearing aids. 9. Old right bundle-branch block. 10. Reformed tobacco abuse. Unit #: [id number] #: [id number] Patient: LADARIUS ZALDIVAR PAST SURGICAL HISTORY Right hip arthroplasty. HOME MEDICATIONS 1. Pantoprazole 40 mg p.o. daily. 2. Eliquis 2.5 mg p.o. b.i.d. 3. Docusate sodium 100 mg p.o. b.i.d. 4. Lipitor 20 mg p.o. at bedtime. 5. Furosemide 40 mg p.o. daily. 6. Vitamin B12 of 50 mcg p.o. daily. 7. Combivent 3 mL inhalation every 4 hours p.r.n. 8. Bisacodyl 5 mg p.o. daily p.r.n. 9. MiraLAX 1 pack p.o. daily. ALLERGIES No known drug allergies. SOCIAL HISTORY The patient has been staying at [facility]. He is a reformed smoker and quit smoking a pipe about 15 years ago. There are no reports of alcohol or illicit drug use. FAMILY HISTORY Significant for heart disease. His daughters had a myocardial infarction and stents. REVIEW OF SYSTEMS A 10-point review of systems is negative except for details noted above in HPI. PHYSICAL EXAMINATION VITAL SIGNS: Temperature 98.6, pulse 104, blood pressure 91/72. CONSTITUTIONAL: This is an 85-year-old white male, in no acute distress. SKIN: Warm and dry. NECK: Supple. No jugular vein distention. No hepatojugular reflex. Normal carotid upstrokes. No carotid bruits auscultated. HEART: S1 and S2. Tachycardic. No murmurs, rubs, or gallops. LUNGS: Bilateral breath sounds have good air entry at all lung matias. Respirations even and nonlabored. No rales, rhonchi, or wheezes. ABDOMEN: Soft, nontender, and nondistended. Positive bowel sounds auscultated x4 quadrants. No ascites noted. EXTREMITIES: Right lower extremity has 2+ pitting edema. Left lower extremity has 1+ pitting edema. DP and PT pulses are 2+. Capillary refill is less than 2 seconds. DIAGNOSTIC STUDIES LABORATORY RESULTS: White blood cell count 8.3, hemoglobin 13.4, hematocrit 41.7, and platelets 229. Sodium 136, potassium 2.3, chloride 89, CO2 of 35, BUN 12, creatinine 1.1, and glucose 105. Magnesium pending. Albumin 3.2, total protein 6.7, AST 21, ALT 15, and alkaline phosphatase 58. TSH 2.23. Troponin 0.05. IMAGING STUDIES: Cardiovascular electrocardiogram reveals atrial flutter with a rapid ventricular response of 147 beats per minute. Right bundle-branch block noted. IMPRESSION 1. Status post fall. 2. Atrial fibrillation/atrial flutter with rapid ventricular response, Unit #: [id number] #: [id number] Patient: LADARIUS ZALDIVAR age undetermined. 3. Old right bundle branch block. 4. Borderline hypotension. 5. Severe hypokalemia. 6. Bilateral lower extremity edema, right greater than left. 7. History of recent right hip arthroplasty, currently on Eliquis. PLAN 1. The patient presented to the hospital after sustaining a fall. He was found to have severe hypokalemia and atrial fibrillation/atrial flutter. 2. His potassium was supplemented. He was placed on amiodarone drip per protocol. 3. No beta-estevan or calcium channel estevan has been prescribed at this time due to borderline hypotension. 4. UA and urine culture have been ordered to rule out urinary tract infection. 5. Orthostatic vital signs have been ordered. 6. A 2D echocardiogram has been ordered to assess LV function and valves. 7. The patient has been placed on Florinef at 0.1 mg p.o. b.i.d. to help maintain blood pressure. 8. The patient has been continued on Eliquis. We will need to evaluate dosing prior to discharge as the patient does have normal weight and renal function. Dictated by... Christie Owens APRN TR/gillian TD: 08/08/2016 16:01 JOB #: [id number] CONSULTATION REPORT Page 1 of 1 X X CONSULTATION REPORT
--- NOTE | ~2016-08-07 | CR253 ---
[facility] A Service of [facility] RADIOLOGY TEXT RESULTS PATIENT: LADARIUS ZALDIVAR LOCATION: [facility] 323-01 : 31 UNIT #: [id number] AGE: [address]: Aby Prieto MD SEX: M ORDER DR: [id number] [facility] [address] [facility]. [place], [place] [address] [id number] MR#: [id number] Acc #: [id number] NAME: LADARIUS ZALDIVAR : 1930 SEX: M STUDY DATE/TIME: 08/07/2016 3:49 UNIT: [facility] ROOM: STUDY DESCRIPTION: CR Tibia and Fibula 2 Views Rt Attending Physician: Janee Borges M.D. Ordering Physician: Donald Rodriguez D.O. Primary Care Physician: Trell Gonsales Jr., M.D. MEDICAL IMAGING REPORT This report is preliminary unless electronic signature is present EXAM Right tibia-fibula series 08/07/2016 HISTORY 85-year-old male in the ED complaining of right leg pain after a fall tonight. Right hip surgery several weeks ago. TECHNIQUE AP and lateral radiographs of the right tibia and fibula. FINDINGS No fracture or other acute osseous abnormality. Subcutaneous soft tissue edema is visible throughout the lower leg. IMPRESSION 1. No acute osseous abnormality. 2. Subcutaneous soft tissue edema throughout the visualized lower leg. Dictated by... Wes Ward M.D. THIS IS AN ELECTRONICALLY VERIFIED REPORT Wes Ward M.D. at 08/07/2016 9:58 PM RICO/betty TD: 08/07/2016 09:22 JOB #: [id number] MEDICAL IMAGING REPORT Page 1 of 1 COPY
--- NOTE | ~2016-08-07 | HP ---
Unit #: [id number] #: [id number] Patient: LADARIUS ZALDIVAR [id number] [address] [id number] I MR#: [id number] NAME: LADARIUS ZALDIVAR. ROOM: 06906 Age: 85 Sex: M Admission Date: 08/07/2016 : 1930 Attending Physician: Aby Prieto M.D. Primary Care Physician: Trell Gonsales Jr., M.D. HISTORY AND PHYSICAL CHIEF COMPLAINT Right hip pain. HISTORY OF PRESENT ILLNESS The patient is an 85-year-old male with past medical history of hypertension, hyperlipidemia, degenerative disk disease, recent right hip arthroplasty who presented to the emergency department from rehab for evaluation of the above. History is obtained from chart review and discussion with ER staff, as well as from the patient and his [id number], who is at bedside. The patient was admitted to [facility] July 25 through August 01, 2016 for altered mental status, probable sepsis and pneumonia. He was discharged to rehab on doxycycline. Per the patient's [id number], he had been doing well. His cough had mostly resolved. He was apparently found at the rehab facility sitting on the floor. The patient is not sure what happened. He states that he "fell out of bed." He currently has no complaints. Multiple imaging studies were done and showed no acute abnormality. During the course of his evaluation, the patient's heart rate was in the 150s. EKG was done and showed wide-complex tachycardia with a rate of 147 beats per minute, as well as a right bundle branch block. Cardiology has already seen the patient and ordered amiodarone. He is currently on an amiodarone drip. He is being admitted to [facility] for evaluation and further treatment. PAST MEDICAL HISTORY 1. Admission to [facility] July 25 through August 01, 2016 for altered mental status, sepsis and pneumonia. He was discharged to rehab on doxycycline. 2. Hypertension. 3. Hyperlipidemia. 4. Degenerative disk disease. 5. Admission to [facility] July 18, 2016 for right femoral neck fracture. He underwent right anterior hip hemiarthroplasty on July 19, 2016. PAST SURGICAL HISTORY 1. Eye surgery. 2. Right hip surgery. SOCIAL HISTORY The patient is currently at rehab. Unit #: [id number] #: [id number] Patient: LADARIUS ZALDIVAR CODE STATUS His code status is a full code. ALLERGIES No known allergies. HOME MEDICATIONS 1. Pantoprazole 40 mg daily. 2. Eliquis 2.5 mg b.i.d. 3. Docusate 100 mg b.i.d. 4. Lipitor 20 mg at bedtime. 5. Furosemide 40 mg daily. 6. Vitamin B12 - 50 mcg daily. 7. Combivent q.4 hours p.r.n. 8. Bisacodyl 5 mg daily p.r.n. 9. MiraLAX daily p.r.n. REVIEW OF SYSTEMS A complete review of systems is negative except as indicated in the HPI. PHYSICAL EXAMINATION VITAL SIGNS: Temperature is 98.6, pulse 104, respirations 16, blood pressure 91/72, oxygen saturation 97%. GENERAL: The patient is a male who is sleeping but wakes to voice. HEENT: The head is atraumatic. Mucous membranes are moist. NECK: Supple. Trachea is midline. CARDIOVASCULAR: Irregular. RESPIRATORY: Lungs are clear to auscultation bilaterally with no increased work of breathing. ABDOMEN: Soft, nontender with bowel sounds present in all 4 quadrants. EXTREMITIES: The right hip demonstrates an incision that is clean, dry and intact. The right lower extremity demonstrates 2+ pitting edema. There is 1+ edema of the left lower extremity. NEUROLOGIC: The patient is oriented x3. He follows commands. PSYCHIATRIC: Mood and affect are normal. The patient is cooperative. SKIN: Skin of examined areas is warm and dry. DIAGNOSTIC TESTS CARDIOVASCULAR: EKG shows wide QRS tachycardia with rate of 147 beats per minute. Right bundle branch block is present. IMAGING: CT of the head shows no acute intracranial abnormality. Right hip x-ray shows no acute abnormality. Right tibia-fibula x-ray shows no acute osseous abnormality. Right femur x-ray shows no osseous abnormality. LABORATORY: Complete blood count is essentially normal. Troponin is less than 0.05. Comprehensive metabolic panel notable for potassium of 2.3, chloride is 89, CO2 is 35, albumin 3.2. Urinalysis notable for trace leukocyte esterase, 1+ ketones, 5-10 white blood cells, negative for bacteria. Magnesium is 2. Lactic acid is 1.4. ASSESSMENT Unit #: [id number] #: [id number] Patient: LADARIUS ZALDIVAR 1. The patient is an 85-year-old male with atrial fibrillation/flutter. Cardiology has already seen the patient and ordered an echocardiogram, as well as amiodarone drip. He is on Eliquis. 2. Hypokalemia. The patient received 60 mEq of potassium IV, as well as 40 mEq p.o. in the emergency department. 3. Status post fall. The patient currently has no complaints of pain. Imaging studies have been negative. 4. Hypertension. The patient's blood pressure has been running low, 91/72 initially, currently 124/65. 5. Hyperlipidemia. 6. Degenerative disk disease. 7. Status post right hip arthroplasty with right lower extremity edema. PLAN 1. Admit to intermediate level. 2. Fall precautions. 3. PT/OT to evaluate and treat. 4. Consult Dr. Moya regarding atrial fibrillation/flutter. 5. Serial cardiac enzymes. 6. Check TSH. 7. Replace potassium. 8. Check magnesium level. 9. Potassium-magnesium protocol. 10. Urine culture and sensitivity on urine in the lab. 11. Venous Doppler of the right lower extremity. 12. Repeat labs in the morning, including magnesium and INR. 13. Monitor blood pressure closely. 14. Additional workup and consultants based on above. 15. Regarding code status, the patient is a full code. Dictated by Kamla Elias/pamela TD: 08/07/2016 13:12 JOB #: [id number] HISTORY AND PHYSICAL Page 1 of 1 X Aby Prieto MD HISTORY AND PHYSICAL
--- NOTE | ~2016-08-07 | CT71 ---
[facility] A Service of [facility] RADIOLOGY TEXT RESULTS PATIENT: LADARIUS ZALDIVAR LOCATION: [facility] 323-01 : 31 UNIT #: [id number] AGE: [address]: Aby Prieto MD SEX: M ORDER DR: [id number] [facility]. [place], [place] [address] [id number] MR#: [id number] Acc #: [id number] NAME: LADARIUS ZALDIVAR : 1930 SEX: M STUDY DATE/TIME: 08/07/2016 5:13 UNIT: [facility] ROOM: STUDY DESCRIPTION: CT Head Wo Contrast Attending Physician: Janee Borges M.D. Ordering Physician: Donald Rodriguez D.O. Primary Care Physician: Trell Gonsales Jr., M.D. MEDICAL IMAGING REPORT This report is preliminary unless electronic signature is present EXAM CT head, noncontrast, 08/07/2016 HISTORY 85-year-old male in the ED with confusion/mental status change, reportedly after a fall. TECHNIQUE CT examination of the head was performed without IV contrast. The CT exam was performed with one or more of the following radiation dose reduction techniques: automatic exposure control, adjustment of mA and/or kV according to patient size, and iterative reconstruction. FINDINGS No acute intracranial abnormality is demonstrated, and there is no visible skull fracture. Mild diffuse low-attenuation white matter changes, nonspecific but likely related to chronic microvascular disease. No evidence of intracranial hemorrhage, mass, mass effect, cerebral edema or hydrocephalus. No change since the recent study of 07/25/2016. IMPRESSION 1. No acute intracranial abnormality. 2. No change since 07/25/2016. Dictated by... Wes Ward M.D. THIS IS AN ELECTRONICALLY VERIFIED REPORT Wes Ward M.D. at 08/07/2016 9:58 PM RGW/cmm [facility] A Service of [facility] RADIOLOGY TEXT RESULTS PATIENT: LADARIUS ZALDIVAR LOCATION: [facility] 323-01 : 31 UNIT #: [id number] AGE: [address]: Aby Prieto MD SEX: M ORDER DR: TD: 08/07/2016 09:28 JOB #: [id number] MEDICAL IMAGING REPORT Page 1 of 1 COPY
--- NOTE | ~2016-08-07 | EKG ---
PATIENT: LADARIUS ZALDIVAR UNIT #: [id number] Ventricular Rate: 89 BPM Atrial Rate: 89 BPM P-R Interval: 220 ms QRS Duration: 148 ms Q-T Interval: 440 ms QTC Calculation(Bezet): 535 ms P [place]: 65 degrees Calculated R [place]: 70 degrees Calculated T [place]: 19 degrees Diagnosis Line: Sinus rhythm with 1st degree A-V block Diagnosis Line: Right bundle branch block Diagnosis Line: Abnormal ECG Diagnosis Line: When compared with ECG of 07-AUG-2016 07:43, Diagnosis Line: OR interval has increased Diagnosis Line: Vent. rate has decreased BY 58 BPM Diagnosis Line: Confirmed by SHAVON MCINTYRE MD ([id number]) on Diagnosis Line: 08/08/2016 10:14:23 PM INTERPRETING MD: MENDOZA
--- NOTE | ~2016-08-07 | CR151 ---
[facility] Service of [facility] & [facility] RADIOLOGY TEXT RESULTS PATIENT: LADARIUS ZALDIVAR LOCATION: [facility] 323- : 31 UNIT #: [id number] AGE: [address]: Aby Prieto MD SEX: M ORDER DR: [id number] [facility] [address] [facility]. [place], [place] [address] [id number] E MR#: [id number] Acc #: [id number] NAME: LADARIUS ZALDIVAR : 1930 SEX: M STUDY DATE/TIME: 08/07/2016 2:42 UNIT: TUTU ROOM: STUDY DESCRIPTION: CR Hip Min 2 Views Rt Attending Physician: Janee Borges M.D. Ordering Physician: [facility] Primary Care Physician: Trell Gonsales Jr., M.D. MEDICAL IMAGING REPORT This report is preliminary unless electronic signature is present EXAM Right hip series 08/07/2016 HISTORY 85-year-old male in the ED complaining of right hip pain after a fall tonight. Previous hip replacement. TECHNIQUE Two-view right hip series. FINDINGS Right proximal femoral endoprosthesis appears well positioned. No acute fracture or dislocation of the pelvis or right hip is visible. IMPRESSION 1. No acute osseous abnormality. 2. Well-positioned right proximal femoral endoprosthesis. Dictated by... Wes Ward M.D. THIS IS AN ELECTRONICALLY VERIFIED REPORT Wes Ward M.D. at 08/07/2016 9:57 PM RICO/betty TD: 08/07/2016 09:13 JOB #: [id number] MEDICAL IMAGING REPORT Page 1 of 1 COPY
--- NOTE | ~2016-08-07 | CR72 ---
[facility] A Service of [facility] & [facility] RADIOLOGY TEXT RESULTS PATIENT: LADARIUS ZALDIVAR LOCATION: [facility] 323-01 : 31 UNIT #: [id number] AGE: [address]: Aby Prieto MD SEX: M ORDER DR: [id number] [facility] [address]. [place], [place] [address] [id number] I MR#: [id number] Acc #: [id number] NAME: LADARIUS ZALDIVAR : 1930 SEX: M STUDY DATE/TIME: 08/07/2016 8:19 [facility] 71274 STUDY DESCRIPTION: CR Chest Single View Portable Attending Physician: Aby Prieto M.D. Ordering Physician: Janee Borges M.D. Primary Care Physician: Trell Gonsales Jr., M.D. MEDICAL IMAGING REPORT This report is preliminary unless electronic signature is present EXAM Portable chest 08/07 INDICATIONS Shortness of air, tachycardia today. History of hypertension. FINDINGS AP portable chest compared with 07/27/2016. Cardiac and mediastinal contours are within normal limits. Again seen is a hiatal hernia. There is bibasilar chronic atelectasis or scarring. No pneumothorax. IMPRESSION Chronic atelectasis or scarring in the bases with a hiatal hernia. No acute infiltrates or pneumothorax identified. Dictated by... Hira Cunha Jr., M.D. THIS IS AN ELECTRONICALLY VERIFIED REPORT Hira Cunha Jr., M.D. at 08/07/2016 5:01 PM CLARISSE/betty TD: 08/07/2016 10:22 JOB #: [id number] MEDICAL IMAGING REPORT Page 1 of 1 COPY
--- NOTE | ~2016-08-07 | DS ---
Unit #: [id number] #: [id number] Patient: LADARIUS ZALDIVAR [id number] [address] [address] [id number] I MR#: [id number] NAME: LADARIUS ZALDIVAR. ROOM: 323 Age: 85 Sex: M Admission Date: 08/07/2016 : 1930 Discharge Date: 08/09/2016 Attending Physician: Farzaneh Dodd M.D. Primary Care Physician: Trell Gonsales Jr., M.D. DISCHARGE SUMMARY DIAGNOSES ON ADMISSION 1. Tachycardia. 2. Hypokalemia. DIAGNOSES ON DISCHARGE 1. Atrial fibrillation with rapid ventricular rate converted to sinus rhythm now. 2. Status post fall. 3. Acute toxic metabolic activity. 4. Recent acute bronchitis. 5. History of recent right total hip arthroplasty. 6. Hypertension. 7. Hyperlipidemia. 8. Degenerative disc disease. 9. Hypokalemia, resolved. 10. Hypotension, improved. CONSULTATION Dr. Singh and Dr. Moya in Cardiac consultation. LABS AND PROCEDURES DONE 1. The patient had a 2-D echocardiogram which revealed an ejection fraction of 60%. There was mild tricuspid regurgitation present. 2. The patient's creatinine today was 0.9, sodium 138 and potassium was 3.4. 3. WBC was 5.6, hemoglobin 12.1 and platelet count 209. HOSPITAL COURSE An 85-year-old male who was recently discharged to rehab on 07/30 after being treated for acute toxic metabolic encephalopathy, acute bronchitis and for possible pneumonia. The patient had a fall at the facility and was transferred to the emergency room. In the ER, patient was atrial fibrillation with a rapid ventricular rate. The patient was initially treated with amiodarone drip. She has converted to sinus rhythm, is on oral amiodarone. Dr. Moya saw patient in consultation and increased Eliquis to 5 mg b.i.d. and she has recommended that the patient can be discharged home. The patient is feeling much better, still confused to time and wants to go back to [facility]. Therefore, we will transfer the patient back to rehab. CONDITION Stable. ACTIVITY Unit #: [id number] #: [id number] Patient: LADARIUS ZALDIVAR As tolerated. MEDICATIONS 1. DuoNeb mini neb treatment q.4 hours p.r.n. 2. Florinef 0.1 mg p.o. b.i.d. 3. Amiodarone 200 mg p.o. b.i.d. for one week then 200 mg p.o. daily. 4. Tylenol 650 mg p.o. q.6 hours p.r.n. 5. Eliquis 5 mg p.o. b.i.d. 6. Dulcolax suppository 5 mg daily p.r.n. 7. Colace 100 mg p.o. b.i.d. 8. MiraLax 70 g daily. 9. Lasix 40 mg p.o. daily. 10. Protonix 40 mg p.o. daily. 11. Lipitor 20 mg p.o. q.h.s. 12. Potassium 40 mEq p.o. b.i.d. 13. Vitamin B12 50 mcg p.o. daily. DISPOSITION The patient will be transferred to rehab. Kindly repeat the patient's BMP for followup on potassium level in two days. Please feel free to call us if there are any questions this hospitalization. After discharge from the facility, the patient should follow up with Dr. Moya. Please make note that the plan has been discussed with patient's daughter who is aware of overall poor prognosis. The plan has been discussed in detail with Dr. Moya and also with patient's daughter. Dictated by... Kamla Christopher TD: 08/09/2016 13:40 JOB #: [id number] DISCHARGE SUMMARY Page 1 of 1 X Farzaneh Dodd MD X DISCHARGE SUMMARY
--- NOTE | ~2016-08-07 | EKG ---
PATIENT: LADARIUS ZALDIVAR UNIT #: [id number] Ventricular Rate: 147 BPM Atrial Rate: 107 BPM QRS Duration: 136 ms Q-T Interval: 340 ms QTC Calculation(Bezet): 532 ms Calculated R [place]: 77 degrees Calculated T [place]: -6 degrees Diagnosis Line: Supraventricular tachycardia Diagnosis Line: Right bundle branch block Diagnosis Line: Abnormal ECG Diagnosis Line: When compared with ECG of 25-JUL-2016 21:25, Diagnosis Line: Vent. rate has increased BY 53 BPM Diagnosis Line: Confirmed by SHAVON MCINTYRE MD ([id number]) on Diagnosis Line: 08/07/2016 10:45:15 PM INTERPRETING MD: MENDOZA
--- NOTE | ~2016-08-07 | CR107 ---
[facility] A Service of [facility] & [facility] RADIOLOGY TEXT RESULTS PATIENT: LADARIUS ZALDIVAR LOCATION: [facility] 323-01 : 31 UNIT #: [id number] AGE: [address]: Aby Prieto MD SEX: M ORDER DR: [id number] [facility] [address] [facility]. [place], [place] [address] [id number] E MR#: [id number] Acc #: [id number] NAME: LADARIUS ZALDIVAR : 1930 SEX: M STUDY DATE/TIME: 08/07/2016 3:46 UNIT: [facility] ROOM: STUDY DESCRIPTION: CR Femur 2 Views Rt Attending Physician: Janee Borges M.D. Ordering Physician: Donald Rodriguez D.O. Primary Care Physician: Trell Gonsales Jr., M.D. MEDICAL IMAGING REPORT This report is preliminary unless electronic signature is present EXAM Right femur 08/07/2016 HISTORY 85-year-old male in the ED complaining of right leg pain after a fall tonight. Right hip surgery several weeks ago. TECHNIQUE AP and lateral radiographs of the right femur were obtained. FINDINGS No evidence of femur fracture or other acute osseous abnormality. Right proximal femoral endoprosthesis appears well positioned. IMPRESSION No acute osseous abnormality. Dictated by... Wes Ward M.D. THIS IS AN ELECTRONICALLY VERIFIED REPORT Wes Ward M.D. at 08/07/2016 9:58 PM RICO/humble TD: 08/07/2016 09:25 JOB #: [id number] MEDICAL IMAGING REPORT Page 1 of 1 COPY
[~2016-08-07 02:09] MED LIST: AMOX-CLAV 500-1 EACH PO; ARTIFICIAL TEAR15 M9 OU; ASPIRIN ENTERI325 M1 PO; CYANOCOBALAMI100 MCG PO; DELTASONE20 MG PO; DOC-Q-LACE100 MG PO; DORZOLAMIDE-TIM10 ML OU; ELIQUIS2.5 MG PO; LIPITOR20 MG PO; NORVASC10 MG PO; PANTOPRAZOLE SO40 MG PO; PRED FORTE1 ML OU; PROAIR HFA8.5 GM PO
[2016-08-07 05:56] LABS: BASOPHIL# 0.1 X10e3 (0-0.3); BASOPHIL% 0.8 % (0-2.5); EOSINOPHIL# 0.1 X10e3 (0-0.7); EOSINOPHIL% 0.7 % (0.0-7.0); HEMATOCRIT 41.7 % (38.0-50.0); HEMOGLOBIN 13.4 gm/dL (13.0-16.0); LYMPHOCYTE# 1.1 X10e3 (1.0-3.5); LYMPHOCYTE% 13.7 % (17.0-45.0); MEAN CELL VOLUME 91.2 FL (83-96); MEAN CORPUSCULAR HEMOGLOBIN 29.4 PG (28-34); MEAN CORPUSCULAR HGB CONC 32.2 g/dL (30-36); MEAN PLATELET VOLUME 9.1 FL (6.5-11.5); MONOCYTE# 1.2 X10e3 (0-1.0); MONOCYTE% 14.7 % (3.0-12.0); NEUTROPHIL# 5.9 X10e3 (1.5-7.1); NEUTROPHIL% 70.1 % (40-75); PLATELET COUNT 229 X10e3 (140-420); RED BLOOD COUNT 4.57 X10e (3.90-5.60); RED CELL DISTRIBUTION WIDTH 15.5 % (11.0-15.5); WHITE BLOOD COUNT 8.3 X10e3 (4.0-10.5)
[2016-08-07 06:01] LABS: DIFF IND NO
[2016-08-07 06:11] LABS: POC - CKMB 1.1 ng/mL (0.0-7.9); POC - TROPONIN <0.05 ng/mL (<=0.05)
[2016-08-07 06:26] LABS: ALBUMIN SERUM 3.2 g/dL (3.5-5.0); BILIRUBIN, DIRECT 0.2 mg/dL (0.0-0.2); BILIRUBIN,INDIRECT 1.5 mg/dL (0.0-0.9); BILIRUBIN,TOTAL 1.7 mg/dL (0.2-2.0); BUN/CREATININE RATIO 10.9; CALCIUM SERUM 8.7 mg/dL (8.4-10.2); CREATININE SERUM 1.1 mg/dL (0.6-1.4); GLOM FILT RATE Estimated 61.3 mL/min (>60); PROTEIN TOTAL SERUM 6.7 g/dL (6.0-8.3)
[2016-08-07 06:30] LABS: POTASSIUM 2.3 mmol/L (3.5-5.1)
[2016-08-07] MEDS ORDERED: FUROSEMIDE40 MG PO (07:23)
[2016-08-07] MEDS ORDERED: VIT B-12 PO (07:24)
[2016-08-07] MEDS ORDERED: COMBIVENT U/D3 ML INH (07:26)
[2016-08-07] MEDS ORDERED: BISACODYL EC5 M2 PO (07:27)
[2016-08-07] MEDS ORDERED: MIRALAX17 GM PO (07:30)
[2016-08-07 08:11] LABS: URINE SOURCE CLEAN CATCH
[2016-08-07 08:20] LABS: URINE APPEARANCE CLOUDY; URINE BILIRUBIN NEG (NEG); URINE BLOOD NEG (NEG); URINE COLOR DK YELLOW; URINE GLUCOSE NEG (NEG); URINE KETONE 1+ (NEG); URINE LEUKOCYTE ESTERASE TRACE (NEG); URINE NITRATE NEG (NEG); URINE PH 6.5 (5-8); URINE PROTEIN 1+ (NEG); URINE SPECIFIC GRAVITY 1.018 (1.003-1.035)
[2016-08-07 08:23] LABS: CULTURE INDICATED? YES; URINE BACTERIA AUWI NEG (NEGATIVE); URINE SQUAMOUS EPITHELIAL CELL FEW /[HPF]
[2016-08-07 08:36] LABS: URINE MUCUS PRESENT
[2016-08-07 11:16] LABS: POC - CKMB <1.0 ng/mL (0.0-7.9); POC - TROPONIN <0.05 ng/mL (<=0.05)
[2016-08-07 17:33] LABS: CK TOTAL 21 IU/L (36-174)
[2016-08-08 00:03] LABS: CK TOTAL 23 IU/L (36-174)
[2016-08-08 05:34] LABS: HEMATOCRIT 35.8 % (38.0-50.0); HEMOGLOBIN 11.6 gm/dL (13.0-16.0); MEAN CELL VOLUME 90.9 FL (83-96); MEAN CORPUSCULAR HEMOGLOBIN 29.5 PG (28-34); MEAN CORPUSCULAR HGB CONC 32.4 g/dL (30-36); MEAN PLATELET VOLUME 9.1 FL (6.5-11.5); RED BLOOD COUNT 3.93 X10e (3.90-5.60); RED CELL DISTRIBUTION WIDTH 15.3 % (11.0-15.5); WHITE BLOOD COUNT 4.7 X10e3 (4.0-10.5)
[2016-08-08 05:52] LABS: INR 1.1; PROTHROMBIN TIME (PATIENT) 11.6 SECONDS (9.6-11.5)
[2016-08-08 06:49] LABS: ALBUMIN SERUM 2.9 g/dL (3.5-5.0); BILIRUBIN,TOTAL 1.3 mg/dL (0.2-2.0); BUN/CREATININE RATIO 10.9; CALCIUM SERUM 8.7 mg/dL (8.4-10.2); CREATININE SERUM 1.1 mg/dL (0.6-1.4); GLOM FILT RATE Estimated 61.3 mL/min (>60); MAGNESIUM 1.8 mg/dL (1.6-3.0); POTASSIUM 3.2 mmol/L (3.5-5.1); PROTEIN TOTAL SERUM 5.6 g/dL (6.0-8.3)
[2016-08-09 08:17] LABS: BUN/CREATININE RATIO 8.88; CALCIUM SERUM 8.7 mg/dL (8.4-10.2); CREATININE SERUM 0.9 mg/dL (0.6-1.4); GLOM FILT RATE Estimated 78.2 mL/min (>60); MAGNESIUM 2.2 mg/dL (1.6-3.0); POTASSIUM 3.4 mmol/L (3.5-5.1)
[2016-08-09 12:15] LABS: BASOPHIL% 0.9 % (0-2.5); EOSINOPHIL# 0.1 X10e3 (0-0.7); HEMATOCRIT 37.9 % (38.0-50.0); HEMOGLOBIN 12.1 gm/dL (13.0-16.0); LYMPHOCYTE# 0.8 X10e3 (1.0-3.5); LYMPHOCYTE% 13.8 % (17.0-45.0); MEAN CELL VOLUME 91.8 FL (83-96); MEAN CORPUSCULAR HEMOGLOBIN 29.2 PG (28-34); MEAN CORPUSCULAR HGB CONC 31.8 g/dL (30-36); MEAN PLATELET VOLUME 8.5 FL (6.5-11.5); MONOCYTE# 0.7 X10e3 (0-1.0); MONOCYTE% 12.6 % (3.0-12.0); NEUTROPHIL% 70.7 % (40-75); PLATELET COUNT 209 X10e3 (140-420); RED BLOOD COUNT 4.13 X10e (3.90-5.60); RED CELL DISTRIBUTION WIDTH 15.3 % (11.0-15.5); WHITE BLOOD COUNT 5.6 X10e3 (4.0-10.5)
[2016-08-09 12:25] LABS: DIFF IND NO
== END 2016-08-09 15:30 | DRG 310 ==
LOC: CED 02:09 → CEDOF 10:35 → C3A PCU 10:35 → CED 10:49 → CEDOF 10:49 → C3A PCU 14:33
PROVIDERS: Emergency Medicine; Family Medicine; Internal Medicine; Internal Medicine Cardiovascular Disease
PROC: B24BYZZ Ultrasonography of Heart with Aorta using Other Contrast (ICD-10-PCS; principal; 2016-08-07)
DX: I48.91 Unspecified atrial fibrillation (principal); I95.9 Hypotension, unspecified; I10 Essential (primary) hypertension; I45.10 Unspecified right bundle-branch block; E87.6 Hypokalemia; Z96.641 Presence of right artificial hip joint; E78.5 Hyperlipidemia, unspecified; R00.0 Tachycardia, unspecified; H40.9 Unspecified glaucoma; Z87.891 Personal history of nicotine dependence; I48.92 Unspecified atrial flutter; Z91.81 History of falling; Y92.122 Bedroom in nursing home as the place of occurrence of the external cause
CPT/HCPCS: 36415; 70450; 71010; 73502; 73552; 73590; 80048; 80053; 80076; 81003; 82550; 82553; 83605; 83735; 83880; 84132; 84443; 84484; 85025; 85027; 85610; 87086; 93005; 93306; 94760; 96365; 96366; 96368; 97116; 97163; 97166; 97530; 99285; G8978-GP; G8979-GP; G8987-GO; G8988-GO; J0282; J1940; J3475

== ENCOUNTER 2016-08-26 17:15 | Inpatient (IN) | payer MEDICARE ==
--- NOTE | ~2016-08-26 | EKG ---
PATIENT: LADARIUS ZALDIVAR UNIT #: [id number] Ventricular Rate: 109 BPM Atrial Rate: 109 BPM P-R Interval: 214 ms QRS Duration: 132 ms Q-T Interval: 358 ms QTC Calculation(Bezet): 482 ms Calculated R [place]: 82 degrees Calculated T [place]: 58 degrees Diagnosis Line: Sinus tachycardia with 1st degree A-V block Diagnosis Line: Right bundle branch block Diagnosis Line: Abnormal ECG Diagnosis Line: No previous ECGs available Diagnosis Line: Confirmed by SHAVON MCINTYRE MD ([id number]) on Diagnosis Line: 08/27/2016 10:39:35 PM INTERPRETING MD: MENDOZA
--- NOTE | ~2016-08-26 | CT2 ---
[facility] A Service of [facility] RADIOLOGY TEXT RESULTS PATIENT: LADARIUS ZALDIVAR LOCATION: [facility] [address] : 31 UNIT #: [id number] AGE: [address]: Sixto White MD SEX: M ORDER DR: [id number] [facility] [address]. [place], [place] [address] [id number] I MR#: [id number] Acc #: [id number] NAME: LADARIUS ZALDIVAR. : 1930 SEX: M STUDY DATE/TIME: 08/26/2016 20:18 UNIT: [facility] ROOM: [facility] STUDY DESCRIPTION: CT Abd and Pelv W Cont Attending Physician: Sixto White M.D. Ordering Physician: Janee Borges M.D. Primary Care Physician: Trell Gonsales Jr., M.D. MEDICAL IMAGING REPORT This report is preliminary unless electronic signature is present EXAM CT abdomen and pelvis with contrast HISTORY 86-year-old male, disoriented, complains of generalized abdominal pain, onset today. This CT exam was performed with one or more of the following radiation dose reduction techniques: automatic exposure control, adjustment of mA and/or kV according to patient size, and iterative reconstruction. FINDINGS Axial images performed through the abdomen and pelvis following IV contrast only. Multiplanar reconstructed images were reviewed at a workstation. ABDOMEN: Lung bases unremarkable. Liver and spleen appear normal. The gallbladder is contracted. Pancreas, kidneys and adrenal glands are unremarkable except for exophytic cyst off the lower pole of the left kidney. Stomach, small bowel and colon remarkable for colonic diverticular changes. No evidence of acute diverticulitis. The appendix is normal. Aorta and IVC appear normal. Retroaortic left renal vein. There are several old healed right-sided rib fractures. PELVIS: Bladder and prostate appear normal. Patient is post right hip hemiarthroplasty. Moderate multilevel degenerative disc disease lumbar spine with multilevel spinal stenosis. IMPRESSION No acute intraabdominal intrapelvic pathology identified. [facility] A Service of [facility] RADIOLOGY TEXT RESULTS PATIENT: LADARIUS ZALDIVAR LOCATION: [facility] 566-01 : 31 UNIT #: [id number] AGE: [address]: Sixto White MD SEX: M ORDER DR: Dictated by... Jah Leonard M.D. THIS IS AN ELECTRONICALLY VERIFIED REPORT Jah Leonard M.D. at 08/27/2016 9:16 PM JACEY/frances TD: 08/26/2016 23:26 JOB #: [id number] MEDICAL IMAGING REPORT Page 1 of 1 COPY
--- NOTE | ~2016-08-26 | DS ---
Unit #: [id number] #: [id number] Patient: LADARIUS FOY [id number] [address] [address] [id number] I MR#: [id number] NAME: LADARIUS FOY ROOM: 566 Age: 86 Sex: M Admission Date: 08/26/2016 : 1930 Discharge Date: 08/28/2016 Attending Physician: Jane Frost M.D. Primary Care Physician: Trell Gonsales Jr., M.D. DISCHARGE SUMMARY PRINCIPAL DIAGNOSES 1. Right foot cellulitis. 2. Toxic-metabolic encephalopathy, secondary to #1, now resolved. 3. Strong clinical suspicion for vascular dementia with normal workup otherwise. 4. Recent history of atrial fibrillation now converted to normal sinus rhythm and maintained on anticoagulation. 5. Right upper arm swelling with pending right upper extremity deep venous thrombosis. 6. Osteoporosis with recent right hip arthroplasty on July 19. 7. Gastroesophageal reflux disease. 8. Hypertension. 9. Hyperlipidemia. 10. Glaucoma. 11. Hard of hearing. 12. Degenerative disc disease. 13. Recent diagnosis of vitamin B12 deficiency. 14. Obesity. 15. Tinea pedis. CONSULTANTS None. PROCEDURES 1. Right upper extremity venous Doppler which is currently pending. 2. CT scan of abdomen and pelvis with contrast on August 26, 2016 with no acute pathology noted. 3. CT of the head without contrast on August 26, 2016 with no acute intracranial abnormality. Age-related atrophy and chronic small-vessel changes noted. 4. Chest x-ray on August 26, 2016 without any acute findings. CLINICAL HISTORY AND HOSPITAL COURSE Mr. Foy is an 86-year-old male who presents to the emergency department due to change in mental status. A workup in the emergency department was relatively unremarkable including a chest x-ray, CT scan of the abdomen and pelvis and CT scan of the head. However, his left foot demonstrates some cellulitis and thus patient was admitted. Patient has remained afebrile throughout hospitalization and he has had no evidence of leukocytosis. Examination is consistent with a mild cellulitis in addition to some significant tinea pedis. He has been Unit #: [id number] #: [id number] Patient: LADARIUS FOY placed on vancomycin and Zosyn with some improvement. I am going to transition him to Bactrim therapy given his normal renal function in addition to terbinafine cream between the toes and this could help over time. I recommend repeat BMP upon completion of antibiotic therapy to ensure renal function and potassium are normal. Patient has remained confused throughout hospitalization. He answers questions but is oriented to self only. He can answer long-term questions fine but short term tends to be difficult. Review of records indicates he has had some recurrent encephalopathy since July of this year and I suspect he has some underlying vascular dementia. This can be further evaluated by family and the care of the physician at rehab; may need to discuss rehab plans other than home prior to discharge. Patient is medically stable to be discharged today. DISCHARGE CONDITION Stable. DISCHARGE STATUS Discharge to rehab. DISCHARGE MEDICATIONS 1. DuoNeb nebulizer treatments 3 mL inhaler q.4 h. p.r.n. for shortness of air. 2. Amiodarone 200 mg daily. 3. Tylenol 650 mg p.o. q.6 h. p.r.n. for pain or fever. 4. Pred Forte one drop to both eyes q.i.d. 5. Eliquis 5 mg b.i.d. 6. Spectazole 1% cream to be applied in the webbing of left toes b.i.d. for 10 days. 7. Cosopt one drop to both eyes daily. 8. Bisacodyl 5 mg p.o. daily p.r.n. for constipation. 9. Colace 100 mg b.i.d. 10. MiraLAX 17 g p.o. daily p.r.n. for constipation. 11. Artificial tears b.i.d. to both eyes for dry eyes. 12. Lasix 40 mg daily. 13. Lubricating Plus one drop to both eyes b.i.d. 14. Lipitor 20 mg daily. 15. Pantoprazole 40 mg daily. 16. Potassium chloride 20 mEq b.i.d. 17. Bactrim DS one tablet b.i.d. for another five days. 18. Vitamin B12 50 mcg p.o. daily. 19. Floranex one tablet b.i.d. DISCHARGE INSTRUCTIONS 1. Patient was instructed to increase activity as tolerated under the care of Physical and Occupational Therapy. 2. He can follow a heart healthy diet. FOLLOWUP 1. Patient will follow up with facility director upon return. 2. He can follow up with Dr. Trell Gonsales upon discharge from rehab and again I would encourage further discussion with family regarding discharge plans from rehab. Time spent on discharge 33 minutes today. Unit #: [id number] #: [id number] Patient: LADARIUS FOY Dictated by... Kamla Kennedy/emily TD: 08/28/2016 15:55 JOB #: [id number] DISCHARGE SUMMARY Page 1 of 1 X Jane Frost MD X DISCHARGE SUMMARY
--- NOTE | ~2016-08-26 | CT71 ---
[facility] A Service of [facility] RADIOLOGY TEXT RESULTS PATIENT: LADARIUS ZALDIVAR LOCATION: [facility] 566-01 : 31 UNIT #: [id number] AGE: [address]: Sixto White MD SEX: M ORDER DR: [id number] [facility] [address] [facility]. [place], [place] [address] [id number] I MR#: [id number] Acc #: [id number] NAME: LADARIUS ZALDIVAR. : 1930 SEX: M STUDY DATE/TIME: 08/26/2016 20:16 UNIT: [facility] ROOM: [facility] STUDY DESCRIPTION: CT Head Wo Contrast Attending Physician: Sixto White M.D. Ordering Physician: Janee Borges M.D. Primary Care Physician: Trell Gonsales Jr., M.D. MEDICAL IMAGING REPORT This report is preliminary unless electronic signature is present EXAM CT head without contrast; 08/26/2016. HISTORY 86-year-old male with altered mental status today. COMPARISON CT head, 08/07/2016. TECHNIQUE Routine unenhanced axial images performed through the brain. This CT exam was performed with one or more of the following radiation dose reduction techniques: automatic exposure control, adjustment of mA and/or kV according to patient size, and iterative reconstruction. FINDINGS No hemorrhage, acute infarction, mass lesion, or abnormal extraaxial fluid collection. No midline shift or focal mass effect. Ventricular system is normal in size and configuration. Mild generalized atrophy. Mild chronic small vessel disease. No acute bony abnormality. Visualized paranasal sinuses and mastoid air cells are clear. IMPRESSION 1. No acute intracranial abnormality. 2. Stable age-related atrophy and mild chronic small vessel disease. Dictated by... Lonnie Escobar M.D. THIS IS AN ELECTRONICALLY VERIFIED REPORT Lonnie Escobar M.D. at 08/27/2016 6:14 PM JKB/jt [facility] A Service of [facility] & [facility] RADIOLOGY TEXT RESULTS PATIENT: LADARIUS ZALDIVAR LOCATION: [facility] 566-01 : 31 UNIT #: [id number] AGE: [address]: Sixto White MD SEX: M ORDER DR: TD: 08/26/2016 23:23 JOB #: [id number] MEDICAL IMAGING REPORT Page 1 of 1 COPY
--- NOTE | ~2016-08-26 | US140 ---
[facility] A Service of [facility] RADIOLOGY TEXT RESULTS PATIENT: LADARIUS ZALDIVAR LOCATION: [facility] 5608-03 : 31 UNIT #: [id number] AGE: [address]: Jane Frost MD SEX: M ORDER DR: [id number] [facility] [address] [place], [place] [address] [id number] I MR#: [id number] Acc #: [id number] NAME: LADARIUS ZALDIVAR : 1930 SEX: M STUDY DATE/TIME: 08/28/2016 15:00 UNIT: [facility] ROOM: [facility] STUDY DESCRIPTION: US UE Veins Unilat or Ltd Stdy Attending Physician: Jane Frost M.D. Ordering Physician: Jane Frost M.D. Primary Care Physician: Trell Gonsales Jr., M.D. MEDICAL IMAGING REPORT This report is preliminary unless electronic signature is present EXAM Right upper extremity venous duplex 08/28/2016 HISTORY Right upper extremity edema and pain for 1 day. Evaluate for deep vein thrombosis. TECHNIQUE Maynard-scale images of the right upper extremity were obtained as well as Doppler waveform spectral analysis and color flow Doppler imaging. FINDINGS There is normal blood flow and compressibility in the right internal jugular vein as well as the right subclavian, axillary, brachial, cephalic and basilic veins. There is no evidence of deep vein thrombosis in the right upper extremity. IMPRESSION Negative right upper extremity venous duplex with no evidence of deep vein thrombosis. Dictated by... Dmitriy Stanley M.D. THIS IS AN ELECTRONICALLY VERIFIED REPORT Dmitriy Stanley M.D. at 08/29/2016 8:05 AM YAJAIRA/landry TD: 08/28/2016 23:30 JOB #: [id number] MEDICAL IMAGING REPORT [facility] A Service of [facility] RADIOLOGY TEXT RESULTS PATIENT: LADARIUS ZALDIVAR LOCATION: [facility] 5608-03 : 31 UNIT #: [id number] AGE: [address]: Jane Frost MD SEX: M ORDER DR: Page 1 of 1 COPY
--- NOTE | ~2016-08-26 | HP ---
Unit #: [id number] #: [id number] Patient: LADARIUS ZALDIVAR [id number] [facility] [address]. [place], [place] [address] [id number] I MR#: [id number] NAME: LADARIUS ZALDIVAR. ROOM: 566 Age: 86 Sex: M Admission Date: 08/26/2016 : 1930 Attending Physician: Sixto White M.D. Primary Care Physician: Trell Gonsales Jr., M.D. HISTORY AND PHYSICAL CHIEF COMPLAINT Patient was sent from long-term for evaluation of change in mental status. DISCUSSION This is an 86-year-old gentleman who has a past medical history of A fib/atrial flutter on amiodarone and Eliquis, right bundle branch block, hypertension, dyslipidemia, GERD, history of lower extremity edema, B12 deficiency, (1) , glaucoma, hard of hearing, status post recent fall with previous right hip arthroplasty in July of 2016. Currently he is in a long-term. He had admission here at [facility] from August 07 to August 09. At that time he was admitted also for change in mental status and rapid A fib with rapid ventricular rate. He was diagnosed with toxic metabolic encephalopathy with bronchitis, possible pneumonia. Eventually the patient was sent to the long-term. He is brought back to form the long-term today with similar symptoms. Chief complaint is change in mental status. His workup, UA and CT head is pending, but his left foot shows some redness, warmth, so possible left foot cellulitis. He is being admitted for that and change in mental status. He is alert, awake, oriented x1. Denied chest pain. Denies nausea, vomiting, diaphoresis, palpitations or other complaint. PAST MEDICAL HISTORY 1. History of admission at [facility] July 25 to August 01 for fall and toxic metabolic encephalopathy. 2. Also admission here in [facility] from August 07 to August 09 for toxic metabolic encephalopathy and A fib with rapid ventricular rate. 3. History of previous right hip arthroplasty on July 19 due to fall. 4. GERD. 5. Hypertension. 6. Hyperlipidemia. 7. Degenerative disk disease. 8. History of glaucoma. 9. Hard of hearing with use of hearing aid. 10. Old right bundle branch block. 11. History of B12 deficiency. PAST SURGICAL HISTORY History of right hip arthroplasty. SOCIAL HISTORY The patient has been staying in [facility] long-term. He used to smoke but quit 15 years ago. No illicit drug use or alcohol abuse. Unit #: [id number] #: [id number] Patient: LADARIUS ZALDIVAR FAMILY HISTORY Significant for heart disease. His daughter had DC and stent. MEDICATIONS FROM CARE HOME 1. Amiodarone 200 mg p.o. daily. 2. MiraLAX 17 grams daily. 3. Lasix 40 mg daily. 4. Protonix 40 mg daily. 5. Vitamin B12 - 1,000 mcg daily. 6. Dorzolamide eyedrops. 7. Prednisolone eyedrops. 8. Lubricant eyedrops. 9. Colace 100 mg b.i.d. 10. Eliquis 5 mg b.i.d. 11. Florinef 1 tablet b.i.d. 12. Atorvastatin 20 mg daily. 13. DuoNeb q.4 hours p.r.n. 14. Dulcolax suppository p.r.n. 15. Tylenol 325 mg 2 tablets q.6 hours p.r.n. REVIEW OF SYSTEMS All review of systems is negative except as in history of present illness. PHYSICAL EXAMINATION GENERAL: Elderly man lying in bed comfortably. Currently not in any distress. An 85-year-old white male, alert, oriented x1. CURRENT VITALS: Temperature is 98.2, heart rate 109, respirations 18, blood pressure 140/93, oxygen 95% on room air. NECK: Neck is supple. No JVD. No hepatojugular reflux. No carotid bruit. No thyromegaly. HEENT: Head is atraumatic and normocephalic. HEART: S1, S2. Regular rate and rhythm. LUNGS: Decreased air entry bilaterally. ABDOMEN: Abdomen is soft. Bowel sounds positive. No guarding. No rigidity. EXTREMITIES: Positive pitting edema +2 bilaterally. On left foot, positive edema, redness and warmth. NEUROLOGIC: He is moving lower extremities. No focal deficits. SKIN: Warm and dry. PSYCHIATRIC: Affect is normal. DIAGNOSTIC STUDIES LABORATORY WORKUP: His sodium is 137, potassium 4.5, chloride 102, CO2 27, glucose 122, BUN 16, creatinine 1. LFT - Alkaline phosphatase 133; otherwise, normal. Magnesium level 2.1. INR is 1. Lactic acid level 1.3. Troponin is 0.05. CBC - White count 6, hemoglobin 12, hematocrit 39, platelets 244. Urine is pending at time of dictation. IMAGING: Chest x-ray shows no acute findings. CT head and abdominal CT scan are pending at time of dictation. ASSESSMENT AND PLAN 1. Change in mental status with history of 2 admissions in the past for toxic metabolic encephalopathy. CT head is pending. Will also get urine for UA. 2. Left foot cellulitis. Will admit the patient. Will start the patient Unit #: [id number] #: [id number] Patient: LADARIUS ZALDIVAR on IV Zosyn and vancomycin. 3. Mild abdominal tenderness on exam. CT scan is pending. 4. History of A fib/atrial flutter. Continue amiodarone and Eliquis. 5. History of old right bundle branch block. 6. History of hypertension. 7. Dyslipidemia. 8. GERD. 9. Lower extremity edema. He had echo on August 08, 2016 showing ejection fraction 60%, mild tricuspid regurgitation. 10. History of B12 deficiency, on supplement. 11. History of glaucoma. 12. Hard of hearing. 13. Obesity. 14. DVT prophylaxis, on Eliquis. Dictated by Sixto White M.D. OSWALD/pamela TD: 08/27/2016 07:59 JOB #: [id number] HISTORY AND PHYSICAL Page 1 of 1 X X HISTORY AND PHYSICAL
--- NOTE | ~2016-08-26 | CR72 ---
[facility] A Service of [facility] & [facility] RADIOLOGY TEXT RESULTS PATIENT: LADARIUS ZALDIVAR LOCATION: [facility] 566-01 : 31 UNIT #: [id number] AGE: [address]: Sixto White MD SEX: M ORDER DR: [id number] [facility] [address]. [place], [place] [address] [id number] I MR#: [id number] #: [id number] NAME: LADARIUS ZALDIVAR. : 1930 SEX: M STUDY DATE/TIME: 08/26/2016 18:45 UNIT: [facility] ROOM: 35732 STUDY DESCRIPTION: CR Chest Single View Portable Attending Physician: Sixto White M.D. Ordering Physician: Janee Borges M.D. Primary Care Physician: Trell Gonsales Jr., M.D. MEDICAL IMAGING REPORT This report is preliminary unless electronic signature is present EXAM Portable chest. HISTORY Hypoxia, altered mental status, shortness of air. COMPARISON 08/07/2016 FINDINGS Portable view of the chest demonstrates lordotic positioning. No definite airspace disease or consolidation. No effusions. Mild cardiomegaly and aortic atherosclerotic changes. No pneumothorax. Dictated by... Jah Leonard M.D. THIS IS AN ELECTRONICALLY VERIFIED REPORT Jah Leonard M.D. at 08/27/2016 9:15 PM Jg TD: 08/26/2016 22:18 JOB #: [id number] MEDICAL IMAGING REPORT Page 1 of 1 COPY
[~2016-08-26 17:15] MED LIST changes: +BISACODYL EC5 M2 PO; +COMBIVENT U/D3 ML INH; +FUROSEMIDE40 MG PO; +MIRALAX17 GM PO; +VIT B-12 PO
[2016-08-26 18:48] LABS: BASOPHIL% 0.5 % (0-2.5); EOSINOPHIL# 0.1 X10e3 (0-0.7); EOSINOPHIL% 0.9 % (0.0-7.0); HEMATOCRIT 39.4 % (38.0-50.0); HEMOGLOBIN 12.6 gm/dL (13.0-16.0); LYMPHOCYTE# 1.4 X10e3 (1.0-3.5); LYMPHOCYTE% 19.7 % (17.0-45.0); MEAN CELL VOLUME 93.2 FL (83-96); MEAN CORPUSCULAR HEMOGLOBIN 29.7 PG (28-34); MEAN CORPUSCULAR HGB CONC 31.9 g/dL (30-36); MEAN PLATELET VOLUME 8.4 FL (6.5-11.5); MONOCYTE# 0.8 X10e3 (0-1.0); MONOCYTE% 11.8 % (3.0-12.0); NEUTROPHIL# 4.6 X10e3 (1.5-7.1); NEUTROPHIL% 67.1 % (40-75); PLATELET COUNT 244 X10e3 (140-420); RED BLOOD COUNT 4.23 X10e (3.90-5.60); RED CELL DISTRIBUTION WIDTH 16.6 % (11.0-15.5); WHITE BLOOD COUNT 6.9 X10e3 (4.0-10.5)
[2016-08-26 18:55] LABS: DIFF IND NO
[2016-08-26 18:56] LABS: POC - CKMB <1.0 ng/mL (0.0-7.9); POC - TROPONIN <0.05 ng/mL (<=0.05)
[2016-08-26 19:03] LABS: PARTIAL THROMBOPLASTIN TIME 30.1 SECONDS (23.5-31.3); PROTHROMBIN TIME (PATIENT) 11.2 SECONDS (10.0-11.7)
[2016-08-26 19:22] LABS: ALBUMIN SERUM 3.9 g/dL (3.5-5.0); BILIRUBIN, DIRECT 0.1 mg/dL (0.0-0.2); BILIRUBIN,INDIRECT 0.1 mg/dL (0.0-0.9); BILIRUBIN,TOTAL 0.2 mg/dL (0.2-2.0); CALCIUM SERUM 9.2 mg/dL (8.4-10.2); GLOM FILT RATE Estimated 68.3 mL/min (>60); MAGNESIUM 2.2 mg/dL (1.6-3.0); POTASSIUM 4.5 mmol/L (3.5-5.1); PROTEIN TOTAL SERUM 7.8 g/dL (6.0-8.3)
[2016-08-26] MEDS ORDERED: COSOPT PF EYE1 EACH OU (19:52)
[2016-08-26] MEDS ORDERED: AMIODARONE HCL200 MG PO (19:53)
[2016-08-26] MEDS ORDERED: LUBRICATING PL1 EACH OU (19:54)
[2016-08-26] MEDS ORDERED: PRED FORTE1 ML OU (19:54)
[2016-08-26] MEDS ORDERED: DOK100 MG PO (19:55)
[2016-08-26] MEDS ORDERED: POTASSIUM CHLO20 ME1 PO (19:56)
[2016-08-26 19:58] LABS: URINE SOURCE CATH
[2016-08-26] MEDS ORDERED: FLORANEX PO (19:58)
[2016-08-26] MEDS ORDERED: TYL325 PO (19:59)
[2016-08-26] MEDS ORDERED: ARTIFICIAL TEAR15 M9 OU (19:59)
[2016-08-26 20:05] LABS: URINE APPEARANCE CLEAR; URINE BILIRUBIN NEG (NEG); URINE BLOOD NEG (NEG); URINE COLOR YELLOW; URINE GLUCOSE NEG (NEG); URINE KETONE NEG (NEG); URINE LEUKOCYTE ESTERASE NEG (NEG); URINE NITRATE NEG (NEG); URINE PH 6.5 (5-8); URINE PROTEIN NEG (NEG); URINE SPECIFIC GRAVITY 1.012 (1.003-1.035); URINE UROBILINOGEN 0.2 MG/DL (NEG)
[2016-08-26 20:12] LABS: CULTURE INDICATED? NO
[2016-08-26 21:11] LABS: POC - CKMB <1.0 ng/mL (0.0-7.9); POC - TROPONIN <0.05 ng/mL (<=0.05)
[2016-08-27 06:13] LABS: BASOPHIL% 0.4 % (0-2.5); EOSINOPHIL# 0.1 X10e3 (0-0.7); EOSINOPHIL% 1.1 % (0.0-7.0); HEMATOCRIT 38.4 % (38.0-50.0); HEMOGLOBIN 12.1 gm/dL (13.0-16.0); LYMPHOCYTE# 1.1 X10e3 (1.0-3.5); LYMPHOCYTE% 16.2 % (17.0-45.0); MEAN CELL VOLUME 92.8 FL (83-96); MEAN CORPUSCULAR HEMOGLOBIN 29.4 PG (28-34); MEAN CORPUSCULAR HGB CONC 31.6 g/dL (30-36); MEAN PLATELET VOLUME 8.8 FL (6.5-11.5); MONOCYTE# 0.9 X10e3 (0-1.0); MONOCYTE% 13.9 % (3.0-12.0); NEUTROPHIL# 4.6 X10e3 (1.5-7.1); NEUTROPHIL% 68.4 % (40-75); PLATELET COUNT 239 X10e3 (140-420); RED BLOOD COUNT 4.14 X10e (3.90-5.60); RED CELL DISTRIBUTION WIDTH 16.1 % (11.0-15.5); WHITE BLOOD COUNT 6.7 X10e3 (4.0-10.5)
[2016-08-27 06:20] LABS: DIFF IND NO
[2016-08-27 06:51] LABS: GLOM FILT RATE Estimated 68.3 mL/min (>60); POTASSIUM 4.2 mmol/L (3.5-5.1)
[2016-08-28 08:18] LABS: BUN/CREATININE RATIO 7.77; CALCIUM SERUM 8.8 mg/dL (8.4-10.2); CREATININE SERUM 0.9 mg/dL (0.6-1.4); GLOM FILT RATE Estimated 77.6 mL/min (>60)
[2016-08-28 10:13] LABS: ARTERIAL BLD GAS O2 SATURATION 94.5 % (90.0-100.0); ARTERIAL BLOOD GAS CARBOXY HB 1.4 %sat (0.0-9.0); ARTERIAL BLOOD GAS HCO3 28.3 mmol/L; ARTERIAL BLOOD GAS MET HB 0.7 %sat (0.0-2.0); ARTERIAL BLOOD GAS pH 7.397 (7.350-7.450)
[2016-08-28 10:14] LABS: ARTERIAL BLOOD GAS PO2 75.5 mmHg (80.0-100)
[2016-08-28 10:15] LABS: ARTERIAL BLOOD GAS ALLEN TEST NORMAL; ARTERIAL BLOOD GAS ART SITE LEFT RADIAL; ARTERIAL DRAW? YES
== END 2016-08-28 23:31 | DRG 602 ==
LOC: CED 17:15 → CEDOF 20:48 → C5C 22:33 → CEDOF 22:33 → C5C 08-28 08:11
PROVIDERS: Emergency Medicine; Internal Medicine; Internal Medicine Endocrinology, Diabetes & Metabolism
DX: L03.116 Cellulitis of left lower limb (principal); G92 Toxic encephalopathy; I48.92 Unspecified atrial flutter; I10 Essential (primary) hypertension; I48.91 Unspecified atrial fibrillation; B35.3 Tinea pedis; E78.5 Hyperlipidemia, unspecified; E53.8 Deficiency of other specified B group vitamins; M81.0 Age-related osteoporosis without current pathological fracture; Z96.641 Presence of right artificial hip joint; K21.9 Gastro-esophageal reflux disease without esophagitis; I45.10 Unspecified right bundle-branch block; Z87.891 Personal history of nicotine dependence; Z79.01 Long term (current) use of anticoagulants; E66.9 Obesity, unspecified; H40.9 Unspecified glaucoma
CPT/HCPCS: 36415; 36600; 51701; 70450; 71010; 74177; 80048; 80076; 80202; 81003; 82553; 82803; 82947; 83605; 83735; 83880; 84443; 84484; 85025; 85610; 85730; 86592; 87040; 93005; 93971; 94760; 96365; 96366; 97116; 97162; 97166; 99285; G8978-GP; G8979-GP; G8987-GO; G8988-GO; J2543; J3370; Q9967

== ENCOUNTER 2016-08-29 14:21 | Inpatient (IN) | payer MEDICARE ==
--- NOTE | ~2016-08-29 | CO ---
Unit #: [id number] #: [id number] Patient: LADARIUS ZALDIVAR [id number] [facility] [address]. [place], [place] [address] [id number] I MR#: [id number] NAME: LADARIUS ZALDIVAR. ROOM: 326 Age: 86 Sex: M Admission Date: 08/29/2016 : 1930 Attending Physician: Steve Bustamante M.D. Primary Care Physician: Trell Gonsales Jr., M.D. Requesting Physician: Jacque Valdes M.D. Consultation Date: 08/30/2016 CONSULTATION REPORT REASON FOR CONSULT Confusion. PATIENT IDENTIFICATION This is an 86-year-old male, right-handed, evaluated in the ER and also in room 326 at [facility]. SOURCE OF INFORMATION Obtained from the family, as well as the medical record. HISTORY OF PRESENT ILLNESS This is an 86-year-old right-handed male with a past medical history of recent toxic metabolic encephalopathy, atrial fibrillation, on Eliquis, hypertension, hyperlipidemia, DJD, and history of fall, who presented to [facility] with confusion and aggression. He was recently treated at this facility for right foot cellulitis and also UTI and was transferred to [facility] for rehab. He was just transferred back here as he had exhibited agitation, confusion, and change in mental status. He had a head CT done in the ER that showed mild atrophy and small vessel changes but no acute findings. The family is at the bedside, and they report that the patient has been agitated and uncooperative. 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 They state they have not seen any strokelike symptoms or any focal deficits. They report "he is fine" at baseline. However, when I asked them about his baseline and how independent he is, apparently he does not drive or handle his finances. He is able to dress himself but requires the family to visit him on a nearly 24/7 basis. There has been no report of any focal weakness or paresthesia, loss of consciousness or loss of awareness, speech changes, complaints of chest pain or shortness of air, headache, fever, chills, or seizure activity. He was brought to the ER and was noted to be extremely aggressive and ultimately required Geodon, as well as Versed. At the time of my evaluation, the patient is more awake, however, it has been several hours since he received those meds, and the patient is confused and mildly agitated. PAST MEDICAL HISTORY 1. Fall in July with toxic metabolic encephalopathy. 2. Admission earlier this month for toxic metabolic encephalopathy and atrial fibrillation with rapid ventricular response. He had an echocardiogram done that showed an EF of 60% with mild MR. He is on Eliquis. 3. Hypertension. Unit #: [id number] #: [id number] Patient: LADARIUS ZALDIVAR 4. Hyperlipidemia. 5. Degenerative joint disease. 6. Glaucoma. 7. Hard of hearing. 8. Old right bundle branch block. 9. B12 deficiency. 10. Right hip arthroplasty in July 2016 following a fall. 11. He was just discharged on August 28, 2016, for treatment of right foot cellulitis. ALLERGIES No known drug allergies. SHELTER MEDICATIONS 1. Amiodarone. 2. Cosopt eyedrops. 3. Vitamin B12. 4. Lasix. 5. Protonix. 6. Prednisolone eyedrops. 7. Eliquis. 8. Colace. 9. Refresh eyedrops. 10. Potassium. 11. Bactrim. 12. Florastor. 13. Lipitor. 14. Albuterol. 15. MiraLax. 16. Artificial Tears. 17. Dulcolax. 18. Tylenol. 19. Skin care lotion. FAMILY HISTORY Noncontributory given patient's stated age of 86. SOCIAL HISTORY The patient comes here from [facility]. No tobacco use, alcohol use, or illicit drug use currently. REVIEW OF SYSTEMS Unable to obtain from the patient given his mental status. PHYSICAL EXAMINATION VITAL SIGNS: Temperature 97.9, pulse 109, respirations 20, and blood pressure 122/71. He has had some episodes of hypotension, though he did receive versed. Oxygen saturation is 93%. Height 5 feet 2 inches, weight 229 pounds. NEUROLOGIC EXAMINATION GENERAL: Patient is restless and confused. He follows some direction but get easily agitated and does not consistently follow commands. His speech is at baseline per family. He does not have any teeth in place. He can name and identify. CRANIAL NERVES: He does not respond to threats in the primary visual matias, but he is very distracted. 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 Pupils are Unit #: [id number] #: [id number] Patient: LADARIUS ZALDIVAR reactive in the left eye but not the right. They are asymmetric but postsurgical. Extraocular movements are intact. Unable to fully assess sensation on the face and scalp or strength of muscles of facial expression but no asymmetry seen. Hearing is intact to voice, but he is very hard of hearing. Unable to assess tongue, uvula, or palate. Head turning is unremarkable spontaneously. Neck is supple. MOTOR: He moves all extremities equally and spontaneously. Endoscopy Tech strength appears to be equal. SENSORY: Unable to assess. GAIT AND ROMBERG: Deferred. REFLEXES: Unable to elicit and toes are equivocal. COORDINATION: Unable to assess. No tremors or myoclonus seen. DIAGNOSTIC STUDIES LABORATORY: Sodium 137, potassium 3.4, chloride 106, CO2 of 28, glucose 98, BUN 14, creatinine 1.3, estimated GFR 49.8, and calcium 8.5. CK 144. B12 of 220. Folate 5. TSH 4.37 and free T4 of 1. Troponin less than 0.03. White blood cell count 6.4, hemoglobin 11.2, hematocrit 35.4, RDW 16.4, and platelet count 220,000. Glucose on arrival 84. IMAGING: CT of the head without contrast on August 29, 2016, impression per Radiology report: Motion degraded but otherwise negative unenhanced head CT. No acute findings. Chest x-ray on August 29, 2016, impression per Radiology report: No acute cardiopulmonary findings or significant interval change. CARDIOLOGY: EKG from August 30, 2016, impression per Cardiology report: Sinus tachycardia, right bundle branch block. IMPRESSION 1. Likely toxic metabolic encephalopathy versus delirium and likely some underlying cognitive impairment after discussion with family. CT of the head does not show significant small vessel disease. It appears to be mild. 2. B12 deficiency. He was recently started on B12. Will increase to 1000 mcg IM daily for recommendation of at least seven days. 3. History of atrial fibrillation, on Eliquis. 4. Recent right foot cellulitis. 5. Mild pyuria, culture pending. 6. Anemia. PLAN Increase B12. Patient may need a psychiatric consult to further aid in management of his delirium. Very doubtful of an acute primary neurologic etiology at this time, but exam is difficulty. If he does not improve, will consider further testing. Nothing at this time to suggest seizure, status, or [employer] infection. Please call for any questions or issues. Patient was seen by Dr. Valle as well at the time of evaluation and he agrees with the above. We thank you very much for allowing us to assist in the care of this patient. Dictated by... Last RichardPBryRBryce for Kamla Tolliver/joyce Unit #: [id number] #: [id number] Patient: LADARIUS ZALDIVAR TD: 08/31/2016 17:39 JOB #: [id number] CONSULTATION REPORT Page 1 of 1 X Aidee Carter BINDERY MACHINE SETTER X CONSULTATION REPORT
--- NOTE | ~2016-08-29 | EKG ---
PATIENT: LADARIUS ZALDIVAR UNIT #: [id number] Ventricular Rate: 116 BPM Atrial Rate: 122 BPM QRS Duration: 138 ms Q-T Interval: 436 ms QTC Calculation(Bezet): 606 ms Calculated R [place]: 72 degrees Calculated T [place]: 18 degrees Diagnosis Line: Sinus tachycardia Diagnosis Line: Right bundle branch block Diagnosis Line: Abnormal ECG Diagnosis Line: When compared with ECG of 26-AUG-2016 18:26, Diagnosis Line: Rate faster Diagnosis Line: Confirmed by SHAVON MCINTYRE MD ([id number]) on Diagnosis Line: 08/30/2016 11:01:12 AM INTERPRETING MD: MENDOZA
--- NOTE | ~2016-08-29 | CR72 ---
[facility] A Service of [facility] & [facility] RADIOLOGY TEXT RESULTS PATIENT: LADARIUS ZALDIVAR LOCATION: [facility] [id number] : 31 UNIT #: [id number] AGE: [address]: Steve Bustamante MD SEX: M ORDER DR: [id number] [facility] [address] [place], [place] [address] [id number] I MR#: [id number] Acc #: [id number] NAME: LADARIUS ZALDIVAR. : 1930 SEX: M STUDY DATE/TIME: 08/29/2016 17:15 UNIT: [facility] ROOM: 81951 STUDY DESCRIPTION: CR Chest Single View Portable Attending Physician: Jacque Valdes M.D. Ordering Physician: Robby Wilkins M.D. Primary Care Physician: Trell Gonsales Jr., M.D. MEDICAL IMAGING REPORT This report is preliminary unless electronic signature is present EXAM Single view chest INDICATION: Shortness of air with activity. Altered mental status. FINDINGS Single portable AP view of the chest compared to 08/26/2016. Heart and mediastinal contours are within normal limits. Lungs are hyperinflated. No focal consolidation. IMPRESSION No acute cardiopulmonary findings or significant interval change. Dictated by... Leonid Kurtz M.D. THIS IS AN ELECTRONICALLY VERIFIED REPORT Leonid Kurtz M.D. at 08/30/2016 8:46 AM LINA/frances TD: 08/30/2016 00:59 JOB #: [id number] MEDICAL IMAGING REPORT Page 1 of 1 COPY
--- NOTE | ~2016-08-29 | CO ---
Unit #: [id number] #: [id number] Patient: RUSTY FOY [id number] [facility] [address] [place], [place] [address] [id number] I MR#: [id number] NAME: RUSTY FOY. ROOM: 450 Age: 86 Sex: M Admission Date: 08/29/2016 : 1930 Attending Physician: Steve Bustamante M.D. Primary Care Physician: Trell Gonsales Jr., M.D. Consultation Date: 08/31/2016 CONSULTATION REPORT REASON FOR CONSULTATION Agitation, confusion, delirium. HISTORY OF PRESENT ILLNESS Mr. Rusty Foy is an 86-year-old white male seen in room 326, bed one at [facility] on 08/31/16. Patient dressed in hospital attire, lying comfortably in bed, made good eye contact. Patient answered question about name and place but unable to give any reliable information. The patient reports that she does not want to eat. The patient's lunch was sitting side. The patient was given Haldol 5 mg, Ativan 0.5 mg yesterday as he was very agitated, delusional, confused. The patient was recently discharged from the hospital from [facility] on 08/28 with right foot cellulitis, also diagnosed with toxic metabolic encephalopathy at that time, which resolved on the last admission. The patient was admitted with altered mental status. The patient has multiple health conditions. The patient was transferred from [facility] for agitation and confusion. The patient was unable to provide any information at this time but no agitation. No restraints needed which was taken off at 11 o'clock this morning. PAST PSYCHIATRIC HISTORY History of toxic metabolic encephalopathy. No known history of any other psychiatric illness. No history of any inpatient psyche treatment. MEDICAL HISTORY History of toxic metabolic encephalopathy on last admission, discharged on 08/28. history of hypertension, hyperlipidemia, degenerative joint disease, glaucoma, hard of hearing, old right bundle branch block, history of B12 deficiency, history of right hip arthroplasty. FAMILY HISTORY AND SOCIAL HISTORY Unavailable at this time. The patient is a resident of [facility]. No history of abuse. No history of any substance abuse. MEDICATION The patient is on: 1. Amiodarone. 2. Cosopt eye drops. 3. Vitamin B12. 4. Lasix. 5. Protonix. 6. Prednisolone eye drops. 7. Eliquis. 8. Colace. Unit #: [id number] #: [id number] Patient: RUSTY FOY 9. Potassium. 10. Bactrim. 11. Florastor. 12. Lipitor. 13. Albuterol. 14. MiraLax. 15. Dulcolax. REVIEW OF SYSTEMS Complete review of systems is unremarkable except as mentioned above. MENTAL STATUS EXAMINATION VITAL SIGNS: 97.9, 97, 20, 147/77. Oxygen saturation 99%. GENERAL APPEARANCE: Patient dressed in hospital attired, lying comfortably in bed. ATTENTION SPAN AND CONCENTRATION: Poor. SPEECH: Slow, answers question in single word. ORIENTATION: Oriented in place and self. MOOD AND AFFECT: Sad, dysphoric, slightly perplexed. THOUGHT PROCESS: Circumstantial. THOUGHT CONTENT: Guarded, paranoid but denied any thoughts of harming self or others. RECENT AND REMOTE MEMORY: Poor. LANGUAGE: Fair. FUND OF KNOWLEDGE: Impaired. INSIGHT AND JUDGMENT: Impaired. DIAGNOSIS Psychiatric: 1. Delirium, F05. 2. 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 SECONDARY DIAGNOSIS Deferred. MEDICAL DIAGNOSIS Please refer to H and P. STRESSORS Psychosocial stressors. ASSESSMENT/PLAN Supportive psychotherapy and psychoeducation provided to patient but patient unable to comprehend much at this time. I explained to the nurse at this time about our treatment plan. Recommending at this time to start Risperdal 0.25 mg twice daily. Advised to hold if patient too sleepy. The patient has Haldol 5 mg (1) q.6 hour p.r.n. for severe agitation available. The patient to continue with the current treatment. Please feel free to call if any questions, telephone number [phone]. Dictated by... Ravi Momin M.D. Manas TD: 09/01/2016 09:31 JOB #: [id number] Unit #: [id number] #: [id number] Patient: RUSTY FOY CONSULTATION REPORT Page 1 of 1 X Ravi Momin MD CONSULTATION REPORT
--- NOTE | ~2016-08-29 | CT71 ---
[facility] A Service of [facility] RADIOLOGY TEXT RESULTS PATIENT: LADARIUS ZALDIVAR LOCATION: [facility] [address] : 31 UNIT #: [id number] AGE: [address]: Steve Bustamante MD SEX: M ORDER DR: [id number] [facility] [address] [place], [place] [address] [id number] I MR#: [id number] Acc #: [id number] NAME: LADARIUS ZALDIVAR : 1930 SEX: M STUDY DATE/TIME: 08/29/2016 18:47 UNIT: [facility] ROOM: 52975 STUDY DESCRIPTION: CT Head Wo Contrast Attending Physician: Jacque Valdes M.D. Ordering Physician: Robby Wilkins M.D. Primary Care Physician: Trell Gonsales Jr., M.D. MEDICAL IMAGING REPORT This report is preliminary unless electronic signature is present EXAM Head CT, no contrast, 08/29/2016. COMPARISON Prior head CT, 08/26/2016. PROCEDURE Routine unenhanced head CT. This CT exam was performed with one or more of the following radiation dose reduction techniques: Automatic exposure control, adjustment of mA and/or kV according to patient size, and iterative reconstruction. HISTORY Fell from wheelchair today with closed-head injury and confusion. FINDINGS There is mild motion degradation but no evidence of intracranial hemorrhage. There is no mass, hydrocephalus or extraaxial fluid collection. The skull base and calvarium show no acute abnormality. IMPRESSION Motion degraded but otherwise negative unenhanced head CT. No acute findings. Dictated by... Jaden Westfall M.D. THIS IS AN ELECTRONICALLY VERIFIED REPORT Jaden Westfall M.D. at 09/01/2016 5:36 PM TEV/psc [facility] A Service [facility] RADIOLOGY TEXT RESULTS PATIENT: LADARIUS ZALDIVAR LOCATION: [facility] [address] : 31 UNIT #: [id number] AGE: [address]: Steve Bustamante MD SEX: M ORDER DR: TD: 08/30/2016 02:42 JOB #: [id number] MEDICAL IMAGING REPORT Page 1 of 1 COPY
--- NOTE | ~2016-08-29 | HP ---
Unit #: [id number] #: [id number] Patient: LADARIUS ZALDIVAR [id number] [address] [place], [place] [address] [id number] I MR#: [id number] NAME: LADARIUS ZALDIVAR. ROOM: 32982 Age: 86 Sex: M Admission Date: 08/29/2016 : 1930 Attending Physician: Jacque Valdes M.D. Primary Care Physician: Trell Gonsales Jr., M.D. HISTORY AND PHYSICAL CHIEF COMPLAINT Confusion with aggressive behavior. HISTORY OF PRESENT ILLNESS This 86-year-old male with atrial fibrillation, anticoagulated, hypertension, and history of toxic metabolic encephalopathy, was transferred from [facility] for agitation and confusion. The patient was most recently admitted to this facility August 26 through August 28, 2016, for right foot cellulitis, currently on Bactrim DS. He developed toxic metabolic encephalopathy which did improve at the time of his discharge. There was strong suspicion for likely underlying vascular dementia. When he went back to the skilled nursing last evening, he was improved. However, today he awoke and was quite aggressive and quite confused which the family states is something new for him. He slid out of his wheelchair as well this morning. He was brought to this emergency department at about 2:30 this afternoon extremely aggressive ultimately requiring Geodon 20 mg IM and a total of 5 mg of IV Versed. He now is somnolent. On examination, his right foot cellulitis looks to be improved. However, his left foot is quite warm and red. He is afebrile and his workup is fairly unremarkable except for a creatinine of 1.5 and mild pyuria but with moderate squamous cells seen. Head CT is negative. PAST MEDICAL HISTORY 1. History of a fall in July with toxic metabolic encephalopathy. 2. Admission earlier this month for toxic metabolic encephalopathy and atrial fibrillation with rapid ventricular response. A 2D echo revealed an ejection fraction of 60% with mild MR. Patient currently is receiving Eliquis. 3. Hypertension. 4. Hyperlipidemia. 5. Degenerative joint disease. 6. Glaucoma. 7. Hard of hearing. 8. Old right bundle branch block. 9. History of B12 deficiency. 10. Right hip arthroplasty in July 2016 following a fall. ALLERGIES No known drug allergies. RESIDENTIAL MEDICATIONS Unit #: [id number] #: [id number] Patient: LADARIUS ZALDIVAR 1. Amiodarone 200 mg daily. 2. Cosopt eyedrops 1 drop O.U. daily. 3. Vitamin B12 at 500 mcg daily. 4. Lasix 40 mg daily. 5. Protonix 40 mg daily. 6. Prednisolone 1% eyedrop 1 drop O.U. q.i.d. 7. Eliquis 5 mg b.i.d. 8. Colace 100 mg b.i.d. 9. Lubricating eyedrops, Refresh eyedrops. 10. Potassium 20 mEq daily. 11. Bactrim DS b.i.d. 12. Florastor 250 mg b.i.d. 13. Lipitor 20 mg daily. 14. Albuterol q.4 hours as needed. 15. MiraLax daily. 16. Artificial Tears 1 drop O.U. b.i.d. p.r.n. 17. Dulcolax p.r.n. 18. Tylenol p.r.n. 19. Skin care lotions p.r.n. FAMILY HISTORY Noncontributory given patient's age. SOCIAL HISTORY The patient lives at [facility] under the care of Dr. Trell Gonsales. He currently does not smoke tobacco or drink alcohol. REVIEW OF SYSTEMS Impossible to obtain as the patient himself is very somnolent after receiving sedating medicines for aggression. PHYSICAL EXAMINATION GENERAL: A somnolent, 86-year-old male who currently in no acute distress. VITAL SIGNS: Temperature 98.1, heart rate 89, O2 saturation is 100%, respirations 16, and blood pressure 124/77. EYES: Pupils are unequal with a dense cataract on the right. NECK: Supple. Pharynx as far as I can tell is benign. CHEST: Clear on patient's supine exam. CARDIAC: Normal S1 and S2 without murmur. ABDOMEN: Bowel sounds are present. No hepatosplenomegaly, tenderness, or masses. EXTREMITIES: Improving right foot cellulitis with an abrasion over the second right toe. However, the left foot looks to be warm and cellulitic. NEUROLOGIC: Patient at this time is somnolent after receiving sedating medicines. He is moving his extremities to noxious stimuli. DIAGNOSTIC STUDIES LABORATORY: Hematocrit is 36.8 and white blood count and platelet count normal. SMA-12: Creatinine 1.5, up from 0.9 yesterday, albumin 3.3, and alkaline phosphatase 100. Cardiac markers are negative. Urinalysis positive leukocyte esterase, positive protein, 5-10 red cells, 10-25 white cells, no bacteria, and moderate squamous cells seen. IMAGING: Head CT shows no acute disease. Chest x-ray shows no acute disease. CARDIOLOGY: EKG shows what I believe is a sinus tachycardia, rate 116, Unit #: [id number] #: [id number] Patient: LADARIUS ZALDIVAR and right bundle branch block which is unchanged from before. ASSESSMENT 1. Aggressive behavior and increased confusion. I suspect this is again due to toxic metabolic encephalopathy, and probably patient does have some mild underlying dementia. 2. Recent admission for right foot cellulitis which appears to be improved on Bactrim, but now left foot appears to be warm and red. 3. History of atrial fibrillation for which the patient is anticoagulated. 4. Gastroesophageal reflux disease. 5. Degenerative joint disease. 6. B12 deficiency. 7. Mild pyuria. PLANS 1. Patient is now sedated following Geodon and Versed. Will give IV fluids until awake and alert. 2. Change Bactrim to vancomycin for now. 3. Neurology consultation. 4. One dose of Rocephin pending urine cultures. 5. Obtain TSH and B12 levels. 6. No need for DVT prophylaxis as the patient takes Eliquis. 1. Dictated by Kamla Robison/joyce TD: 08/29/2016 22:42 JOB #: [id number] HISTORY AND PHYSICAL Page 1 of 1 X Jacque Valdes MD HISTORY AND PHYSICAL
--- NOTE | ~2016-08-29 | DS ---
Unit #: [id number] #: [id number] Patient: LADARIUS ZALDIVAR [id number] [address] [address] [id number] I MR#: [id number] NAME: LADARIUS ZALDIVAR. ROOM: 450 Age: 86 Sex: M Admission Date: 08/29/2016 : 1930 Discharge Date: 09/01/2016 Attending Physician: Steve Bustamante M.D. Primary Care Physician: Trell Gonsales Jr., M.D. DISCHARGE SUMMARY REASON FOR ADMISSION Aggressive behavior, acute confusion while at rehab. HISTORY OF PRESENT ILLNESS/HOSPITAL COURSE The patient is a very pleasant 86-year-old male, underlying history of atrial fibrillation on chronic anticoagulation, hypertension, who recently had a right hip fracture as well a right foot cellulitis, was discharged from our facility on August 28, 2016 to a rehab facility. While he was at the rehab facility, he had increased agitation and confusion and thus was sent back to the ER for further evaluation. On his previous admission there was strong suspicion for underlying dementia. It was not formally worked up as the ofbuamml-rz-jie stated that she preferred the patient to have outpatient evaluation. While here the patient's initial urinalysis was positive. Concern for possible underlying UTI was made. Ultimately urine culture did not yield any bacterial growth. Blood cultures were also ascertained which have yielded no acute bacterial growth thus far. Dr. Momin as well as Dr. Valle were both consulted in regard to behavioral disturbance. Patient did require IM Haldol at one point in time secondary to issues. Dr. Momin started patient on Risperdal b.i.d. Dr. Valle recommended outpatient neuropsychiatric evaluation. At this point in time patient is clinically stable for transition back to rehab for ongoing care. His left foot on admission was noted to have some erythema consistent with some mild cellulitis. He will be discharged with a prescription for Levaquin 500 mg for seven additional days and this may be followed at rehab. FINAL DIAGNOSES 1. Likely acute delirium on underlying baseline dementia. 2. Dementia with associated aggressive behavior, likely worsening dementia with no infectious etiology. 3. Recent hospital admission secondary to cellulitis with associated toxic-metabolic encephalopathy. 4. Atrial fibrillation on chronic anticoagulation. 5. Hypertension. 6. Hyperlipidemia. 7. Osteoarthritis. Unit #: [id number] #: [id number] Patient: LADARIUS ZALDIVAR 8. Morbid obesity. 9. Prior history of B12 deficiency. 10. Recent right hip fracture status post arthroplasty in July of 2016. 11. Left foot cellulitis. DISCHARGE MEDICATIONS 1. Amiodarone 200 mg p.o. daily. 2. Combivent aerosol solution q.4 h. p.r.n. 3. Tylenol 650 mg p.o. q.6 h. p.r.n. 4. Prednisone eye drop q.6 h. 5. Eliquis 5 mg p.o. b.i.d. 6. Risperdal 0.25 mg p.o. b.i.d. 7. Colace 100 mg p.o. b.i.d. 8. MiraLAX 17 g mixed with 8 oz of water drink daily. 9. Lasix 40 mg p.o. daily. 10. Lipitor 20 mg p.o. q.h.s. 11. Florastor 250 mg p.o. b.i.d. 12. Protonix 40 mg p.o. daily. 13. Potassium chloride 20 mEq p.o. b.i.d. 14. Vitamin B12 1000 mcg IM weekly. 15. Doxycycline 100 mg p.o. b.i.d. X7 days. DISCHARGE CONDITION Stable. DISCHARGE DISPOSITION Rehab. Dictated by... Kamla Torres/emily TD: 09/01/2016 16:44 JOB #: [id number] DISCHARGE SUMMARY Page 1 of 1 X Elena Tipton MD X DISCHARGE SUMMARY
[~2016-08-29 14:21] MED LIST changes: +AMIODARONE HCL200 MG PO; +COSOPT PF EYE1 EACH OU; +DOK100 MG PO; +FLORANEX PO; +LUBRICATING PL1 EACH OU; +POTASSIUM CHLO20 ME1 PO; +TYL325 PO
[2016-08-29 18:06] LABS: URINE SOURCE CLEAN CATCH
[2016-08-29 18:16] LABS: URINE APPEARANCE TURBID; URINE BLOOD TRACE (NEG); URINE COLOR DK YELLOW; URINE GLUCOSE NEG (NEG); URINE KETONE 1+ (NEG); URINE LEUKOCYTE ESTERASE 1+ (NEG); URINE NITRATE NEG (NEG); URINE PROTEIN 1+ (NEG); URINE SPECIFIC GRAVITY 1.023 (1.003-1.035)
[2016-08-29 18:21] LABS: CULTURE INDICATED? YES; URINE BACTERIA AUWI NEG (NEGATIVE); URINE SQUAMOUS EPITHELIAL CELL MOD /[HPF]
[2016-08-29 18:32] LABS: URINE MUCUS PRESENT
[2016-08-29 18:41] LABS: BASOPHIL% 0.5 % (0-2.5); HEMATOCRIT 36.8 % (38.0-50.0); HEMOGLOBIN 11.9 gm/dL (13.0-16.0); LYMPHOCYTE# 0.9 X10e3 (1.0-3.5); LYMPHOCYTE% 9.6 % (17.0-45.0); MEAN CELL VOLUME 91.5 FL (83-96); MEAN CORPUSCULAR HEMOGLOBIN 29.5 PG (28-34); MEAN CORPUSCULAR HGB CONC 32.3 g/dL (30-36); MEAN PLATELET VOLUME 8.4 FL (6.5-11.5); MONOCYTE# 0.7 X10e3 (0-1.0); MONOCYTE% 8.2 % (3.0-12.0); NEUTROPHIL# 7.4 X10e3 (1.5-7.1); NEUTROPHIL% 81.7 % (40-75); PLATELET COUNT 227 X10e3 (140-420); RED BLOOD COUNT 4.02 X10e (3.90-5.60); RED CELL DISTRIBUTION WIDTH 15.9 % (11.0-15.5)
[2016-08-29 18:44] LABS: DIFF IND NO
[2016-08-29 20:27] LABS: ALBUMIN SERUM 3.3 g/dL (3.5-5.0); BILIRUBIN, DIRECT 0.1 mg/dL (0.0-0.2); BILIRUBIN,INDIRECT 0.4 mg/dL (0.0-0.9); BILIRUBIN,TOTAL 0.5 mg/dL (0.2-2.0); CALCIUM SERUM 8.7 mg/dL (8.4-10.2); CREATININE SERUM 1.5 mg/dL (0.6-1.4); GLOM FILT RATE Estimated 41.9 mL/min (>60); POTASSIUM 3.5 mmol/L (3.5-5.1); PROTEIN TOTAL SERUM 6.4 g/dL (6.0-8.3)
[2016-08-29 21:20] LABS: POC - CKMB 1.9 ng/mL (0.0-7.9); POC - TROPONIN <0.05 ng/mL (<=0.05)
[2016-08-30 04:57] LABS: BASOPHIL% 0.5 % (0-2.5); DIFF IND NO; EOSINOPHIL# 0.1 X10e3 (0-0.7); EOSINOPHIL% 1.4 % (0.0-7.0); HEMATOCRIT 35.4 % (38.0-50.0); HEMOGLOBIN 11.2 gm/dL (13.0-16.0); LYMPHOCYTE% 16.4 % (17.0-45.0); MEAN CELL VOLUME 92.4 FL (83-96); MEAN CORPUSCULAR HEMOGLOBIN 29.4 PG (28-34); MEAN CORPUSCULAR HGB CONC 31.8 g/dL (30-36); MEAN PLATELET VOLUME 8.1 FL (6.5-11.5); MONOCYTE# 0.8 X10e3 (0-1.0); MONOCYTE% 12.8 % (3.0-12.0); NEUTROPHIL# 4.4 X10e3 (1.5-7.1); NEUTROPHIL% 68.9 % (40-75); PLATELET COUNT 220 X10e3 (140-420); RED BLOOD COUNT 3.83 X10e (3.90-5.60); RED CELL DISTRIBUTION WIDTH 16.4 % (11.0-15.5); WHITE BLOOD COUNT 6.4 X10e3 (4.0-10.5)
[2016-08-30 05:33] LABS: BUN/CREATININE RATIO 10.76; CALCIUM SERUM 8.5 mg/dL (8.4-10.2); CREATININE SERUM 1.3 mg/dL (0.6-1.4); GLOM FILT RATE Estimated 49.8 mL/min (>60); POTASSIUM 3.4 mmol/L (3.5-5.1)
[2016-08-30 06:11] LABS: %MB 1.5 % (0.0-4.0); MB 2.2 ng/ml
[2016-08-30 06:14] LABS: THYROID STIMULATING HORMONE 4.37 uIU/ml (0.34-5.60)
[2016-08-31 05:24] LABS: HEMATOCRIT 35.1 % (38.0-50.0); HEMOGLOBIN 11.2 gm/dL (13.0-16.0); MEAN CELL VOLUME 93.3 FL (83-96); MEAN CORPUSCULAR HEMOGLOBIN 29.6 PG (28-34); MEAN CORPUSCULAR HGB CONC 31.8 g/dL (30-36); MEAN PLATELET VOLUME 8.6 FL (6.5-11.5); RED BLOOD COUNT 3.77 X10e (3.90-5.60); RED CELL DISTRIBUTION WIDTH 16.5 % (11.0-15.5); WHITE BLOOD COUNT 7.3 X10e3 (4.0-10.5)
[2016-08-31 06:20] LABS: THYROID STIMULATING HORMONE 3.54 uIU/ml (0.34-5.60)
[2016-08-31 06:26] LABS: FREE THYROXIN (T4) 1.21 ng/dL (0.58-1.64)
[2016-08-31 06:31] LABS: CALCIUM SERUM 8.4 mg/dL (8.4-10.2); GLOM FILT RATE Estimated 68.3 mL/min (>60); POTASSIUM 3.3 mmol/L (3.5-5.1)
[2016-08-31 06:54] LABS: MB 2.3 ng/ml
== END 2016-09-01 19:00 | DRG 884 ==
LOC: CED 14:21 → CEDOF 22:19 → CED 22:19 → C3A PCU 22:21 → CEDOF 22:21 → C3A PCU 08-30 14:20 → C4B 09-01 01:55
PROVIDERS: Emergency Medicine; Internal Medicine
DX: F03.91 Unspecified dementia, unspecified severity, with behavioral disturbance (principal); F05 Delirium due to known physiological condition; L03.116 Cellulitis of left lower limb; I48.91 Unspecified atrial fibrillation; E66.01 Morbid (severe) obesity due to excess calories; I10 Essential (primary) hypertension; E78.5 Hyperlipidemia, unspecified; H54.8 Legal blindness, as defined in USA; H40.9 Unspecified glaucoma; H91.90 Unspecified hearing loss, unspecified ear; E53.8 Deficiency of other specified B group vitamins; Z96.641 Presence of right artificial hip joint; M19.90 Unspecified osteoarthritis, unspecified site
CPT/HCPCS: 36415; 70450; 71010; 80048; 80076; 80202; 81003; 82550; 82553; 82607; 82746; 82947; 84439; 84443; 84484; 85025; 85027; 87086; 93005; 94640; 94760; 96372; 96374; 99285; J0696; J1630; J2060; J2250; J3370; J3420; J3486

== ENCOUNTER 2016-09-29 00:07 | Inpatient (IN) | payer MEDICARE ==
[~2016-09-29] VITALS: Ht 180.3 cm; Wt 98.1 kg
--- NOTE | ~2016-09-29 | CT57 ---
[facility] A Service of [facility] RADIOLOGY TEXT RESULTS PATIENT: LADARIUS ZALDIVAR LOCATION: [facility] : 31 UNIT #: [id number] AGE: [address]: Elena Tipton MD SEX: M ORDER DR: [id number] [facility] [address] [place], [place] [address] [id number] I MR#: [id number] #: [id number] NAME: LADARIUS ZALDIVAR : 1930 SEX: M STUDY DATE/TIME: 10/03/2016 15:20 UNIT: [facility] PCU ROOM: [facility] STUDY DESCRIPTION: CT Chest Wo Cont Attending Physician: Elena Tipton M.D. Ordering Physician: Elena Tipton M.D. Primary Care Physician: Trell Gonsales Jr., M.D. MEDICAL IMAGING REPORT This report is preliminary unless electronic signature is present EXAM CT scan of the chest without contrast INDICATIONS Shortness of breath today. TECHNIQUE CT scan of the chest was performed without contrast. Coronal and sagittal reformatted images were obtained. This CT exam was performed with one or more of the following radiation dose reduction techniques: automatic control, adjustment of mA and/or kV according to patient size, and iterative reconstruction. COMPARISON 07/27/2016 FINDINGS There is minimal atelectasis in the lung bases. No airspace consolidation. No suspicious pulmonary nodule. No suspicious lymphadenopathy. Coronary artery calcification. Stable hiatal hernia containing mostly fat. Limited imaging of the upper abdomen is unremarkable. Bone windows show multiple healing rib fractures on the right. IMPRESSION Minimal bibasilar atelectasis. No airspace consolidation Dictated by... Emerson Leonard M.D. THIS IS AN ELECTRONICALLY VERIFIED REPORT Emerson Leonard M.D. at 10/04/2016 10:29 AM [facility] A Service of [facility] RADIOLOGY TEXT RESULTS PATIENT: LADARIUS ZALDIVAR LOCATION: [facility] : 31 UNIT #: [id number] AGE: [address]: Elena Tipton MD SEX: M ORDER DR: HERIBERTO/lianna TD: 10/03/2016 18:13 JOB #: [id number] MEDICAL IMAGING REPORT Page 1 of 1 COPY
--- NOTE | ~2016-09-29 | CR72 ---
[facility] A Service of [facility] RADIOLOGY TEXT RESULTS PATIENT: LADARIUS ZALDIVAR LOCATION: [facility] [address]-31 : 31 UNIT #: [id number] AGE: [address]: Jacque Valdes MD SEX: M ORDER DR: [id number] [facility] [address] [place], [place] [address] [id number] E MR#: [id number] #: [id number] NAME: LADARIUS ZALDIVAR. : 1930 SEX: M STUDY DATE/TIME: 09/29/2016 01:36 UNIT: [facility] ROOM: STUDY DESCRIPTION: CR Chest Single View Portable Attending Physician: Israel Bryson Ordering Physician: Ed Doctor [id number] [facility] Primary Care Physician: Trell Gonsales Jr., M.D. MEDICAL IMAGING REPORT This report is preliminary unless electronic signature is present EXAM Portable chest, 09/29 at 01:36 INDICATIONS Shortness of air, congestion and weakness that started tonight. FINDINGS AP portable chest compared with 08/29/2016. Cardiomegaly is stable. There is some atelectasis or perhaps some scarring at the left base. Lungs otherwise are clear. There is no pneumothorax. Dictated by... Hira Cunha Jr., M.D. THIS IS AN ELECTRONICALLY VERIFIED REPORT Hira Cunha Jr., M.D. at 09/29/2016 6:54 AM ELIOK/bess TD: 09/29/2016 02:27 JOB #: [id number] MEDICAL IMAGING REPORT Page 1 of 1 COPY
--- NOTE | ~2016-09-29 | CO ---
Unit #: [id number] #: [id number] Patient: LADARIUS ZALDIVAR [id number] [facility] [address] [place], [place] [address] [id number] I MR#: [id number] NAME: LADARIUS ZALDIVAR. ROOM: [facility] Age: 86 Sex: M Admission Date: 09/29/2016 : 1930 Attending Physician: Elena Tipton M.D. Primary Care Physician: Trell Gonsales Jr., M.D. Consultation Date: 09/29/2016 CONSULTATION REPORT REASON FOR CONSULTATION Bilateral lower extremity edema with history of CHF and atrial fibrillation. 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 The patient was treated for paroxysmal atrial fibrillation, but converted to sinus rhythm. He does have a history of hypertension, hyperlipidemia, GERD, degenerative disk disease, glaucoma, old right bundle-branch block, and chronic diastolic congestive heart failure. 2D echocardiogram was completed on 08/07/2016 revealed ejection fraction 60% with mild aortic and tricuspid regurgitation. He was discharged from [facility] to rehab. He was released from rehab yesterday to home with his daughter. According to his daughter, he was not doing well at home and was confused. He could not take his medications and when she pulled up the sheet, she realized that his legs are very swollen. He was brought to the emergency department for further evaluation. He was admitted for confusion and suspected urinary tract infection. He was started on antibiotics. Speech therapy was consulted for swallow evaluation. He failed a swallow study and all of his oral medications were placed on hold. Cardiology was consulted for lower extremity edema, atrial fibrillation, and history of diastolic congestive heart failure. Labs revealed a BNP of 47. Chest x-ray revealed cardiomegaly with some atelectasis or some scarring in the left base, but no pulmonary edema. EKG revealed sinus rhythm with a first-degree AV block and right bundle-branch block. The patient is confused, but resting comfortably. He is able to answer yes and no questions, but is likely a poor historian due to mental status. PAST MEDICAL HISTORY 1. 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 2. 2D echocardiogram on 08/07/2016 revealed an ejection fraction of 60%. Mild aortic and tricuspid regurgitation. RVSP normal. 3. Paroxysmal atrial fibrillation, now in sinus. 4. Hypertension. 5. Hyperlipidemia. Unit #: [id number] #: [id number] Patient: LADARIUS ZALDIVAR 6. Chronic diastolic congestive heart failure. 7. GERD. 8. Degenerative disk disease. 9. Glaucoma. 10. Old right bundle-branch block. 11. History of fall with right hip arthroplasty on 07/19/2016. 12. Reformed tobacco abuse. PAST SURGICAL HISTORY Right hip arthroplasty. HOME MEDICATIONS Pantoprazole 40 mg p.o. daily, Eliquis 5 mg p.o. b.i.d., Colace 100 mg p.o. b.i.d., Lipitor 10 mg p.o. at bedtime, furosemide 40 mg p.o. daily, vitamin B12 50 mg p.o. daily, Combivent 3 mL inhalation every 4 hours, bisacodyl 5 mg p.o. daily, MiraLax 1 packet p.o. daily, Cosopt eye drops one drop OU daily, amiodarone 200 mg p.o. daily, Pred-Forte 1 mL OU q.i.d., Lubricating plus 1 drop OU b.i.d., docusate sodium 100 mg p.o. b.i.d., potassium chloride 12 mEq p.o. b.i.d., Floranex unknown dose, Tylenol 650 mg p.o. p.r.n. for pain, artificial tears one drop OU b.i.d. p.r.n. ALLERGIES No known drug allergies. SOCIAL HISTORY The patient was previously at rehab and discharged home yesterday. He is a reformed smoker. There are no reports of alcohol or illicit drug use. FAMILY HISTORY Significant for heart disease. His daughter had a myocardial infarction and stent. REVIEW OF SYSTEMS Difficult to obtain per the patient. Please see details as noted above. PHYSICAL EXAMINATION VITAL SIGNS: Temperature 97.8, pulse 94, blood pressure 111/70. CONSTITUTIONAL: This is an 86-year-old white male, who is confused. SKIN: Warm and dry. NECK: Supple. No jugular vein distention. No hepatojugular reflux. Normal carotid upstrokes. No carotid bruits auscultated. HEART: S1 and S2. Regular rate and rhythm. No murmurs, rubs, or gallops. LUNGS: Bilateral breath sounds have good entry throughout all lung matias. Respirations are even and nonlabored. No rales, rhonchi, or wheezes. ABDOMEN: Soft, nontender, and nondistended. Positive bowel sounds auscultated x4 quadrants. No ascites noted. EXTREMITIES: Bilateral lower extremities have at least 2+ pitting edema. DP and PT pulses are 1+. Capillary refill is less than 2 seconds. DIAGNOSTIC STUDIES LABORATORY RESULTS: White blood cell count 7.1, hemoglobin 11.6, hematocrit 35.9, and platelets 249. Sodium 137, potassium 3.9, chloride 100, CO2 of 30, BUN 12, creatinine 1.1, glucose 93. Albumin 3.4, total protein 7.1. AST 17, ALT 16, alkaline phos 94. CK 23, troponin 0.03 and 0.03. BNP 47. TSH recently normal on 08/31/2016 at 3.54. Unit #: [id number] #: [id number] Patient: LADARIUS ZALDIVAR IMAGING STUDIES: Chest x-ray reveals cardiomegaly. Atelectasis or scarring in the left lung base. Otherwise lungs clear. No pneumothorax. CT of the head without contrast reveals motion degraded, but otherwise negative head CT. CARDIOVASCULAR STUDIES: EKG reveals sinus rhythm with a first-degree AV block. Old right bundle-branch block. No acute ST or T-wave changes. QTc 500 msec. IMPRESSION 1. Altered mental status with underlying dementia. 2. Possible urinary tract infection. 3. Dysphagia. 4. Recent toxic metabolic encephalopathy. 5. Recent right foot cellulitis. 6. Bilateral lower extremity edema possibly from venous stasis versus cellulitis. 7. Chronic immobility. 8. History of paroxysmal atrial fibrillation, now in sinus rhythm. 9. Hypertension. 10. Hyperlipidemia. 11. Ejection fraction 60% per 2D echocardiogram on 08/07/2016. PLAN 1. The patient presented to the hospital with confusion and lower extremity edema. He was admitted for further observation. Cardiology was consulted for lower extremity edema. 2. The patient's BNP and chest x-ray are normal. There is no JVD on exam. However, he does have significant lower extremity edema. 3. I agree with one dose of Lasix. However, edema could be due to venous stasis versus cellulitis, as there is some erythema on exam. 4. The patient is having difficulty swallowing and failed his bedside swallow evaluation. His oral medications have been placed on hold and for the time being he will be given Lovenox due to history of atrial fibrillation. 5. Telemetry currently reveals sinus rhythm. 6. Cardiac enzymes are negative and EKG is nonacute. Thank you for consulting us. We will continue to follow with you. Dictated by... Christie Owens APRN for Darren England M.D. MERYL/gillian TD: 09/30/2016 00:38 JOB #: [id number] Unit #: [id number] #: [id number] Patient: LADARIUS ZALDIVAR CONSULTATION REPORT Page 1 of 1 X X CONSULTATION REPORT
--- NOTE | ~2016-09-29 | EKG ---
PATIENT: LADARIUS ZALDIVAR UNIT #: [id number] Ventricular Rate: 97 BPM Atrial Rate: 97 BPM P-R Interval: 220 ms QRS Duration: 142 ms Q-T Interval: 394 ms QTC Calculation(Bezet): 500 ms P [place]: 56 degrees Calculated R [place]: 70 degrees Calculated T [place]: 26 degrees Diagnosis Line: Sinus rhythm with 1st degree A-V block Diagnosis Line: Right bundle branch block Diagnosis Line: Abnormal ECG Diagnosis Line: No previous ECGs available Diagnosis Line: Confirmed by IMAN ECHEVERRIA MD ([id number]) on Diagnosis Line: 09/29/2016 7:33:09 AM INTERPRETING MD: JACKI DUTTON
--- NOTE | ~2016-09-29 | FU ---
[facility] Nutrition Therapy DATE: 10/04/16 Patient: LADARIUS ZALDIVAR Physician: VIKTOR Address: [facility] Room/Bed: [address] [place] [address], Zip: [place] [address] Admit Date: 09/29/16 Date of : [birth year] Height: 5 11 Weight: 216 98 NUTRITION MONITORING/FOLLOW-UP: Reason: Nutrition follow up Anthropometrics: Ht: 71" Wt: 98.7 kg BMI: 30 Wt 8/2: 98 kg (lift) Labs: K+ 3.3 BUN <5 Accuchecks 101-118 Meds: Lopressor, MgSO4, KCl, D5%, vitamin B12, protonix I&O's: 240/3175, last BM 10/01 Skin: Reviewed, no changes since previous assessment Edema: BLE- pitting Estimated Nutrition Needs: 6158-2299 kcals (18-22 kcals/kg) 79-99 grams protein (0.8-1.0 grams/kg) Diet: Mechanical soft with ground meats and NTL Assessment: Chart reviewed, events noted. Pt ended up passing his video MANAGER AGENCY evaluation, and advanced to the above diet per MANAGER AGENCY recommendations. MANAGER AGENCY recommended feeding assistance at a slow rate and GERD precautions. Per MD note, PEG placement has been cancelled for now. Per CM note, the pt's family reports that the pt is not eating. No family in room at this time to speak with RD. RD spoke with CENTRAL SUPPLY NURSE who has bee feeding the pt, and she reports that he would not eat anything today, and threw a drink on the ground. It does not appear that the pt has any desire to eat based on report above from today. Please see recommendations below. Dx: Inadequate energy intake RT dysphagia AEB pt failed MANAGER AGENCY, possible need for enteral nutrition- ETOLOGY NO LONGER ACCURATE, SEE UPDATED DX BELOW New Dx: Inadequate energy intake RT dysphagia, advanced age AEB MANAGER AGENCY evaluation, pt with minimal to no PO intake. Intervention: 1. PEG + EN if appropriate 2. Magic Cup TID [facility] Nutrition Therapy DATE: 10/04/16 Patient: LADARIUS ZALDIVAR Physician: VIKTOR Address: [facility]/Bed: [facility] [place] [address], Zip: [place] [address] Admit Date: 09/29/16 Date of : [birth year] Height: 5 11 Weight: 216 98 Monitoring, Evaluation and Goals: 1. Enteral nutrition; consistent with estimated nutrient needs- NOT RELEVANT (PEG NOT PLACED) 2. Tolerate oral diet if diet advanced- NOT MET (DIET ADVANCED, BUT NO PO INTAKE TODAY) NEW GOALS: 1. Enteral nutrition; PEG, initiate EN if feasible and appropriate 2. Oral intake; consume 50-100% of meals 3. Weight; prevent unintentional weight loss Recommendations: 1. If the pt continues with minimal to no nutritional intake, re-consider PEG placement if appropraite based on the pt's goals of care. If PEG is placed, start enteral nutrition with Jevity 1.5 @ 20 mL/hr and increase by 10 mL q 4 hrs as tolerated to goal of 60 mL/hr. This would provide: 2160 kcals/ 92 grams protein/ 1094 mL free H20 -Add free H20 flushes per MD once enteral nutrition is at goal rate. Recommend 250 mL free H20 QID (and hold IVF) or per DM orders 2. Continue MANAGER AGENCY to determine least restrictive diet tolerated by the patient. No further therapeutic diet restrictions recommended at this time to better facilitate PO intake. 3. RD will order Magic Cup TID for supplemental nutrition (appropriate for altered consistency diet). 4. Appreciate staff and family assistance with nutritional intake. Status: Pt is at moderate nutritional risk. RD will continue to follow hospital course. Respectfully, KINGSLEY STANTON RD, LD Food and Nutritional Services [facility] cc: client file
--- NOTE | ~2016-09-29 | DS ---
Unit #: [id number] #: [id number] Patient: LADARIUS ZALDIVAR [id number] [facility]. [place], [place] [address] [id number] I MR#: [id number] NAME: LADARIUS ZALDIVAR. ROOM: 341 Age: 86 Sex: M Admission Date: 09/29/2016 : 1930 Discharge Date: 10/05/2016 Attending Physician: Elena Tipton M.D. Primary Care Physician: Trell Gonsales Jr., M.D. DISCHARGE SUMMARY REASON FOR ADMISSION Acute delirium on dementia, UTI. HISTORY OF PRESENT ILLNESS Please refer to H and P for complete details. Patient was subsequently admitted for the same secondary to his decreased mental status. He was initially made NPO. Numerous consultations were placed to speech therapy services who initially stated the patient should be absolutely NPO and, in fact, recommendation at one point in time was made for PEG tube placement. Consultation was then placed to Dr. Padron of GI services who, unfortunately, could not place PEG tube secondary to logistical reasons as well as difficulty with gastric anatomy. At that point in time, consultation was placed to [facility] for a possible open gastrotomy tube. Speech therapy then re-evaluated patient and recommended video function swallow study to which he passed with appropriate dietary modifications, then, PEG tube placement was not required. In regards to the patient's UTI, initially urine culture did come back proteus with sensitivity to Rocephin to which he was placed on IV while here. Repeat UA as well as repeat urine culture did reveal resolution and, thus, antibiotics were de-escalated. In regards to patient's prior history of atrial fibrillation, cardiology services were consulted. Initially, he was placed on Lovenox secondary to needing for possible PEG tube. However, he was reverted back to his p.o. dose of Eliquis to which he was taking prior to admission. Cardiology services felt as though patient is stable. Secondary to poor respiratory status as well as dysphagia, consideration for possible underlying aspiration pneumonia was made. Patient underwent CT chest on October 03, 2016, which only revealed minimal basilar atelectasis and, thus, his antibiotics were de-escalated but later discontinued altogether. Ultimately, it seems secondary to his recurrent hospital admissions as well as acute delirium on his baseline dementia, patient will likely require rehab and then consideration to group home [facility] placement for ongoing care. FINAL DISCHARGE DIAGNOSES 1. Acute delirium, on dementia. Unit #: [id number] #: [id number] Patient: LADARIUS ZALDIVAR 2. Urinary tract infection Proteus, now resolved. 3. Paroxysmal atrial fibrillation. 4. Chronic anticoagulation. 5. Diastolic dysfunction/heart failure. 6. Hypertension. 7. Hyperlipidemia. 8. Dysphagia. 9. Morbid obesity. 10. Recent right hip arthroplasty July 2016. FINAL DISCHARGE MEDICATIONS 1. Duo-Neb aerosol solution q.6 scheduled. 2. Amiodarone 200 mg p.o. daily. 3. Tylenol 650 mg p.o. q.4 p.r.n. 4. Eliquis 5 mg p.o. b.i.d. 5. Lopressor 12.5 mg p.o. b.i.d. 6. Bowel regimen as per [facility]cf. 7. Lasix 40 mg p.o. daily. 8. Lipitor 20 mg p.o. q. h.s. 9. Protonix 40 mg p.o. daily. 10. Potassium chloride 20 mEq p.o. b.i.d. 11. Vitamin B12 1000 mcg p.o. daily. 12. Probiotic daily. DISCHARGE CONDITION Stable. DISCHARGE DISPOSITION Rehab for ongoing care. Prognosis of this patient is poor group home. Chance of readmission significantly elevated. Dictated by... Elena Tipton M.D. PAM/anupama TD: 10/05/2016 10:33 JOB #: [id number] DISCHARGE SUMMARY Page 1 of 1 X Elena Tipton MD X DISCHARGE SUMMARY
--- NOTE | ~2016-09-29 | CR72 ---
[facility] A Service of [facility] & [facility] RADIOLOGY TEXT RESULTS PATIENT: LADARIUS ZALDIVAR LOCATION: [facility] 335- : 31 UNIT #: [id number] AGE: [address]: Elena Tipton MD SEX: M ORDER DR: [id number] [facility] [address] [place], [place] [address] [id number] I MR#: [id number] #: [id number] NAME: LADARIUS ZALDIVAR. : 1930 SEX: M STUDY DATE/TIME: 10/02/2016 15:19 [facility]: [facility] STUDY DESCRIPTION: CR Chest Single View Portable Attending Physician: Elena Tipton M.D. Ordering Physician: Elena Tipton M.D. Primary Care Physician: Trell Gonsales Jr., M.D. MEDICAL IMAGING REPORT This report is preliminary unless electronic signature is present EXAM Portable chest, 10/02. INDICATIONS Congestion, cough, fluid overload, and weakness for 3 days. FINDINGS AP portable chest is compared with 09/29/16. Heart remains enlarged. There is persistent infiltrate or atelectasis at the left base with developing infiltrate or atelectasis at the right base. There may be small right effusion. No pneumothorax is seen. Please note that the patient's chin obscures detail on both lung apices. Dictated by... Hira Cunha Jr., M.D. THIS IS AN ELECTRONICALLY VERIFIED REPORT Hira Cunha Jr., M.D. at 10/03/2016 7:21 AM CLARISSE/dominic TD: 10/03/2016 06:09 JOB #: [id number] MEDICAL IMAGING REPORT Page 1 of 1 COPY
--- NOTE | ~2016-09-29 | A ---
[facility] Nutrition Therapy DATE: 10/02/16 Patient: LADARIUS ZALDIVAR Physician: VIKTOR Address: [facility]/Bed: [address] [place] [address], Zip: [place] [address] Admit Date: 09/29/16 Date of : 31 Height: 5 11 Weight: 217 98.7 NUTRITIONAL ASSESSMENT: REASON: Consult for enteral nutrition recommendations Admitting dx: 86 y/o male admitted with BLE edema and AMS PMH: HTN, HLD, GERD, DDD, CHF, cellulitis Anthropometrics: Ht: 71", Wt: 98.7 kg, BMI: 30 (stage I obese) Labs: glucose 59, POC 102-111 Meds: D5 1/2 NS @ 75 ml/hr, Vit B12, PPI I/O & Bowel function: Last BM unknown Skin Integrity: BLE pitting edema Estimated Nutrition Needs: 9736-3614 kcals/day (18-22 kcals/kg) 79-99 g protein/day (0.8-1.0 g/kg) Fluids consistent with kcal needs or per MD Assessment: Chart reviewed, events noted. See admitting dx and PMH as stated above. RD consulted to provide EN recs as the patient has been NPO x 3 days and has failed KILN TRANSFER OPERATOR evals x 3. Video swallow ordered, if fails pt will likely need a PEG tube. Scored o points on the malnutrition risk score, no recent weight loss suspected. See recs below, will follow hospital course. Dx: Inadequate energy intake r/t dysphagia AEB failed KILN TRANSFER OPERATOR eval, possible need for EN. Intervention: Nutrition support Monitoring, Evaluation and Goals: 1. EN consistent with estimated nutritional needs. 2. Tolerance of oral diet advancement if passes video swallow eval. Monitor: per protocol, criteria to determine if above goals met Recommendations: Advance oral diet per video swallow study results. If pt fails video swallow place [facility] Nutrition Therapy DATE: 10/02/16 Patient: LADARIUS ZALDIVAR Physician: VIKTOR Address: [facility]/Bed: [address] [place] [address], Zip: [place] [address] Admit Date: 09/29/16 Date of : 31 Height: 5 11 Weight: 217 98.7 and start enteral nutrition with Jevity 1.5 @ 20 ml/hr. Increase by 10 ml q 4 hours until goal rate of 60 ml/hr is reached, to provide 1440 ml, 2160 kcals, 92 g protein and 1094 ml water. Add free water flushes per MD once at goal rate, suggest 250 ml QID and hold liquid IVF. If patient continues to fail swallow studies he may require PEG tube placement for long-term enteral access. RD will follow hospital course Moderate nutrition risk Respectfully, Opal Vargas RD, LD [employer] [facility] Nutrition[facility] cc: client file
--- NOTE | ~2016-09-29 | OR ---
Unit #: [id number] #: [id number] Patient: LADARIUS ZALDIVAR [id number] [place], [place] [address] [id number] Joseph MR#: [id number] NAME: LADARIUS ZALDIVAR. ROOM: [facility] Date of Procedure: 10/03/2016 Admission Date: 09/29/2016 Surgeon: Sergio Padron M.D. : 1930 Attending Physician: Elena Tipton M.D. Primary Care Physician: Trell Gonsales Jr., M.D. OPERATIVE REPORT PROCEDURES PERFORMED EGD and failed PEG tube placement. INDICATIONS The patient brought in for dysphagia failing swallowing study for PEG tube placement. He has significant dementia, undergoing evaluation with upper endoscopy and PEG tube placement. MEDICATIONS Monitored anesthesia. POSTOPERATIVE FINDINGS 1. Normal esophagus. 2. Two large gastric polyps that were left alone. 3. Normal duodenum and distal duodenum. 4. I was unable to find a good spot for the G-tube placement by indentation or transillumination or with a needle safe track method, hence the percutaneous endoscopic gastrostomy tube could not be placed. PLAN We will consider a consult for surgical with gastrostomy tube placement. DESCRIPTION OF PROCEDURE The patient was explained of the procedure, risks, and benefits along with risks and benefits of anesthesia. Informed consent was obtained from power of attorney recruiter. He was brought to the endoscopy room. Monitored anesthesia was given. The scope was passed down the mouth and esophagus, stomach, duodenum, and distal duodenum. Findings as described. No biopsies taken. Gently, the scope was pulled out. He tolerated it well. No major complications seen. Dictated by... Kamla Do/gillian TD: 10/03/2016 11:04 JOB #: [id number] Unit #: [id number] #: [id number] Patient: LADARIUS ZALDIVAR OPERATIVE REPORT Page 1 of 1 X Sergio Padron MD PROCEDURE OPERATIVE NOTE
--- NOTE | ~2016-09-29 | CR72 ---
[facility] A Service of [facility] & [facility] RADIOLOGY TEXT RESULTS PATIENT: LADARIUS ZALDIVAR LOCATION: [facility] 335-01 : 31 UNIT #: [id number] AGE: [address]: Elena Tipton MD SEX: M ORDER DR: [id number] [facility] [address] [place], [place] [address] [id number] I MR#: [id number] #: [id number] NAME: LADARIUS ZALDIVAR. : 1930 SEX: M STUDY DATE/TIME: 09/29/2016 1023 UNIT: [address] ROOM: [facility] STUDY DESCRIPTION: CR Chest Single View Portable Attending Physician: Elena Tipton M.D. Ordering Physician: Elena Tipton M.D. Primary Care Physician: Trell Gonsales Jr., M.D. MEDICAL IMAGING REPORT This report is preliminary unless electronic signature is present EXAM Chest portable 09/29/2016 1023 hours CLINICAL HISTORY 86-year-old man with shortness of air, congestion, and altered mental status today. COMPARISON 09/29/2016 at 0136 hours FINDINGS Portable upright chest is rotated to the right. There is stable cardiomegaly and tortuous aorta. There is mild pulmonary venous distension and mild basilar interstitial prominence appearing similar to prior film. There is no effusion. IMPRESSION Rotated film with stable cardiomegaly, tortuous aorta, mild pulmonary venous distension. Mild basilar interstitial prominence appears unchanged. There is no pleural effusion or pneumothorax. Dictated by... Fabi Pang M.D. THIS IS AN ELECTRONICALLY VERIFIED REPORT Fabi Pang M.D. at 09/29/2016 5:19 PM Mi TD: 09/29/2016 15:47 JOB #: [id number] MEDICAL IMAGING REPORT Page 1 of 1 COPY
--- NOTE | ~2016-09-29 | HP ---
Unit #: [id number] #: [id number] Patient: LADARIUS ZALDIVAR [id number] [address] [id number] I MR#: [id number] NAME: LADARIUS ZALDIVAR. ROOM: 341 Age: 86 Sex: M Admission Date: 09/29/2016 : 1930 Attending Physician: Elena Tipton M.D. Primary Care Physician: Trell Gonsales Jr., M.D. HISTORY AND PHYSICAL REASON FOR ADMISSION Urinary tract infection, confusion. HISTORY OF PRESENT ILLNESS Patient is an 86-year-old male recently discharged from our hospital late part of August 2016 for foot cellulitis as well as mental status change. He was subsequently readmitted after he was noted to have increased confusional episodes while he was at home. PAST MEDICAL HISTORY History of fall in July 2016, off and on hospital admissions over the past several weeks secondary to toxic metabolic encephalopathy, acute delirium, prior history of atrial fibrillation with RVR, hypertension, hyperlipidemia, degenerative joint disease, glaucoma, hard of hearing, prior right bundle branch block, B12 deficiency, right hip arthroplasty, status post fall in July of 2016. ALLERGIES No known drug allergies. HOME MEDICATIONS 1. Amiodarone. 2. Eyedrops. 3. B12. 4. Lasix. 5. Protonix. 6. Prednisolone. 7. Eliquis. 8. Colace. 9. Potassium. 10. Bactrim. 11. Florastor. 12. Lipitor. 13. Bowel regimen. FAMILY HISTORY Noncontributory given patient's age. SOCIAL HISTORY Patient resides at home, I believe. No alcohol. No tobacco. He was recently discharged from rehab facility. REVIEW OF SYSTEMS Impossible to obtain at time of admission secondary to patient being Unit #: [id number] #: [id number] Patient: LADARIUS ZALDIVAR somnolent as well as having profound mental status change. PHYSICAL EXAMINATION HEENT: Head exam: Atraumatic and normocephalic. Ear exam: Tympanic membranes did not reveal erythema or injection. NECK EXAM: Supple. CVS: S1 and S2 without murmur. RESPIRATORY: Coarse breath sounds heard bilaterally. GI/ABDOMEN: Distention noted, but nontender and (1) . LOWER EXTREMITIES: No evidence of any lower extremity edema. NEUROLOGIC: Patient A and O x0 at time of admission. INITIAL ASSESSMENT 1. Increased confusion. 2. Urinary tract infection with abnormal UA on admission. 3. Likely acute delirium on baseline dementia. 4. Prior hospital admission secondary to right foot cellulitis. 5. Recent right hip arthroplasty, July 2016. 6. Prior history of atrial fibrillation on chronic anticoagulation. 7. Gastroesophageal reflux disease. 8. Degenerative joint disease. 9. B12 deficiency. PLAN Admission telemetry floor, routine medications, await urine culture and blood culture, cardiac consultation, neurology to see. Further hospital course pending above. Seems likely to represent acute delirium on baseline dementia perhaps secondary to acute UTI. Long-term placement in residential might be more ideal for this particular individual given numerous hospital admissions. Plans will be reviewed with patient's family once they arrive. Dictated by Kamla Torres/dominic TD: 10/05/2016 10:12 JOB #: [id number] HISTORY AND PHYSICAL Page 1 of 1 X Elena Tipton MD X HISTORY AND PHYSICAL
[2016-09-29 03:03] LABS: BASOPHIL% 0.4 % (0-2.5); EOSINOPHIL# 0.2 X10e3 (0-0.7); EOSINOPHIL% 3.2 % (0.0-7.0); HEMATOCRIT 35.9 % (38.0-50.0); HEMOGLOBIN 11.6 gm/dL (13.0-16.0); LYMPHOCYTE# 1.1 X10e3 (1.0-3.5); LYMPHOCYTE% 15.5 % (17.0-45.0); MEAN CELL VOLUME 91.5 FL (83-96); MEAN CORPUSCULAR HEMOGLOBIN 29.7 PG (28-34); MEAN CORPUSCULAR HGB CONC 32.5 g/dL (30-36); MEAN PLATELET VOLUME 7.9 FL (6.5-11.5); MONOCYTE# 0.8 X10e3 (0-1.0); MONOCYTE% 11.6 % (3.0-12.0); NEUTROPHIL# 4.9 X10e3 (1.5-7.1); NEUTROPHIL% 69.3 % (40-75); PLATELET COUNT 249 X10e3 (140-420); RED BLOOD COUNT 3.92 X10e (3.90-5.60); RED CELL DISTRIBUTION WIDTH 16.7 % (11.0-15.5); WHITE BLOOD COUNT 7.1 X10e3 (4.0-10.5)
[2016-09-29 03:04] LABS: DIFF IND NO
[2016-09-29 03:13] LABS: POC - CKMB 1.8 ng/mL (0.0-7.9); POC - TROPONIN <0.05 ng/mL (<=0.05)
[2016-09-29 03:31] LABS: ALBUMIN SERUM 3.4 g/dL (3.5-5.0); BILIRUBIN, DIRECT 0.2 mg/dL (0.0-0.2); BILIRUBIN,INDIRECT 0.3 mg/dL (0.0-0.9); BILIRUBIN,TOTAL 0.5 mg/dL (0.2-2.0); BUN/CREATININE RATIO 10.9; CALCIUM SERUM 8.9 mg/dL (8.4-10.2); CREATININE SERUM 1.1 mg/dL (0.6-1.4); GLOM FILT RATE Estimated 60.9 mL/min (>60); POTASSIUM 3.9 mmol/L (3.5-5.1); PROTEIN TOTAL SERUM 7.1 g/dL (6.0-8.3)
[2016-09-29 03:46] LABS: URINE SOURCE CLEAN CATCH
[2016-09-29 03:51] LABS: URINE APPEARANCE CLOUDY; URINE BILIRUBIN NEG (NEG); URINE BLOOD 1+ (NEG); URINE COLOR YELLOW; URINE GLUCOSE NEG (NEG); URINE KETONE NEG (NEG); URINE LEUKOCYTE ESTERASE 2+ (NEG); URINE NITRATE POS (NEG); URINE PROTEIN TRACE (NEG)
[2016-09-29 03:55] LABS: CULTURE INDICATED? YES; URINE BACTERIA AUWI 4+ (NEGATIVE); URINE SQUAMOUS EPITHELIAL CELL NONE SEEN /[HPF]; UWBCS1 AUWI 100-200 (0-5)
[2016-09-29 10:18] LABS: ARTERIAL BLD GAS O2 SATURATION 93.3 % (90.0-100.0); ARTERIAL BLOOD GAS ALLEN TEST NORMAL; ARTERIAL BLOOD GAS ART SITE LEFT RADIAL; ARTERIAL BLOOD GAS CARBOXY HB 1.2 %sat (0.0-9.0); ARTERIAL BLOOD GAS MET HB 0.6 %sat (0.0-2.0); ARTERIAL BLOOD GAS PCO2 46.3 mmHg (35.0-45.0); ARTERIAL BLOOD GAS PO2 71.1 mmHg (80.0-100); ARTERIAL DRAW? YES
[2016-09-29 12:38] LABS: CK TOTAL 27 IU/L (36-174)
[2016-09-29 16:39] LABS: CK TOTAL 23 IU/L (36-174)
[2016-09-30 05:58] LABS: HEMATOCRIT 34.9 % (38.0-50.0); HEMOGLOBIN 11.4 gm/dL (13.0-16.0); MEAN CELL VOLUME 91.8 FL (83-96); MEAN CORPUSCULAR HGB CONC 32.6 g/dL (30-36); RED BLOOD COUNT 3.8 X10e (3.90-5.60); RED CELL DISTRIBUTION WIDTH 16.7 % (11.0-15.5); WHITE BLOOD COUNT 6.9 X10e3 (4.0-10.5)
[2016-09-30 06:17] LABS: BUN/CREATININE RATIO 9.09; CALCIUM SERUM 8.7 mg/dL (8.4-10.2); CREATININE SERUM 1.1 mg/dL (0.6-1.4); GLOM FILT RATE Estimated 60.9 mL/min (>60); POTASSIUM 3.9 mmol/L (3.5-5.1)
[2016-10-01 06:22] LABS: HEMATOCRIT 34.3 % (38.0-50.0); HEMOGLOBIN 11.1 gm/dL (13.0-16.0); MEAN CELL VOLUME 92.3 FL (83-96); MEAN CORPUSCULAR HGB CONC 32.5 g/dL (30-36); MEAN PLATELET VOLUME 8.1 FL (6.5-11.5); RED BLOOD COUNT 3.71 X10e (3.90-5.60); RED CELL DISTRIBUTION WIDTH 16.5 % (11.0-15.5); WHITE BLOOD COUNT 6.7 X10e3 (4.0-10.5)
[2016-10-01 07:49] LABS: ALBUMIN SERUM 2.9 g/dL (3.5-5.0); BILIRUBIN,TOTAL 1.3 mg/dL (0.2-2.0); BUN/CREATININE RATIO 15.55; CALCIUM SERUM 8.6 mg/dL (8.4-10.2); CREATININE SERUM 0.9 mg/dL (0.6-1.4); GLOM FILT RATE Estimated 77.6 mL/min (>60); POTASSIUM 3.8 mmol/L (3.5-5.1); PROTEIN TOTAL SERUM 5.9 g/dL (6.0-8.3)
[2016-10-03 05:21] LABS: HEMATOCRIT 38.4 % (38.0-50.0); HEMOGLOBIN 12.5 gm/dL (13.0-16.0); MEAN CELL VOLUME 91.6 FL (83-96); MEAN CORPUSCULAR HEMOGLOBIN 29.9 PG (28-34); MEAN CORPUSCULAR HGB CONC 32.6 g/dL (30-36); MEAN PLATELET VOLUME 8.6 FL (6.5-11.5); RED BLOOD COUNT 4.19 X10e (3.90-5.60); RED CELL DISTRIBUTION WIDTH 16.4 % (11.0-15.5); WHITE BLOOD COUNT 6.2 X10e3 (4.0-10.5)
[2016-10-03 06:22] LABS: BUN/CREATININE RATIO 6.25; CALCIUM SERUM 8.9 mg/dL (8.4-10.2); CREATININE SERUM 0.8 mg/dL (0.6-1.4); GLOM FILT RATE Estimated 81.5 mL/min (>60)
[2016-10-03 06:25] LABS: POTASSIUM 2.8 mmol/L (3.5-5.1)
[2016-10-03 19:54] LABS: URINE APPEARANCE CLOUDY; URINE BILIRUBIN NEG (NEG); URINE BLOOD 3+ (NEG); URINE COLOR YELLOW; URINE GLUCOSE NEG (NEG); URINE KETONE 1+ (NEG); URINE LEUKOCYTE ESTERASE 1+ (NEG); URINE NITRATE NEG (NEG); URINE PH 6.5 (5-8); URINE PROTEIN 2+ (NEG); URINE SPECIFIC GRAVITY 1.015 (1.003-1.035)
[2016-10-03 19:59] LABS: CULTURE INDICATED? YES; URBCS1 AUWI INNUM /[HPF] (0-2); URINE BACTERIA AUWI NEG (NEGATIVE); URINE SQUAMOUS EPITHELIAL CELL FEW /[HPF]; UWBCS1 AUWI 25-50 (0-5)
[2016-10-04 06:21] LABS: HEMATOCRIT 35.9 % (38.0-50.0); HEMOGLOBIN 11.7 gm/dL (13.0-16.0); MEAN CELL VOLUME 91.8 FL (83-96); MEAN CORPUSCULAR HGB CONC 32.7 g/dL (30-36); MEAN PLATELET VOLUME 8.5 FL (6.5-11.5); RED BLOOD COUNT 3.91 X10e (3.90-5.60); RED CELL DISTRIBUTION WIDTH 16.5 % (11.0-15.5); WHITE BLOOD COUNT 6.5 X10e3 (4.0-10.5)
[2016-10-04 07:00] LABS: CALCIUM SERUM 8.6 mg/dL (8.4-10.2); CARBON DIOXIDE 28 mmol/L (22-31); CHLORIDE 100 mmol/L (100-111); CREATININE SERUM 0.7 mg/dL (0.6-1.4); GLOM FILT RATE Estimated 86.1 mL/min (>60); GLUCOSE FASTING 100 mg/dL (70-110); POTASSIUM 3.3 mmol/L (3.5-5.1); SODIUM 135 mmol/L (135-145)
[2016-10-04 07:01] LABS: BLOOD UREA NITROGEN <5 mg/dL (9-23); BUN/CREATININE RATIO 7.14
[2016-10-05 05:23] LABS: BASOPHIL% 0.2 % (0-2.5); EOSINOPHIL# 0.1 X10e3 (0-0.7); EOSINOPHIL% 1.9 % (0.0-7.0); HEMOGLOBIN 11.7 gm/dL (13.0-16.0); LYMPHOCYTE# 0.9 X10e3 (1.0-3.5); LYMPHOCYTE% 12.8 % (17.0-45.0); MEAN CELL VOLUME 92.7 FL (83-96); MEAN CORPUSCULAR HGB CONC 32.4 g/dL (30-36); MEAN PLATELET VOLUME 8.4 FL (6.5-11.5); MONOCYTE# 1.1 X10e3 (0-1.0); MONOCYTE% 14.7 % (3.0-12.0); NEUTROPHIL# 5.2 X10e3 (1.5-7.1); NEUTROPHIL% 70.4 % (40-75); PLATELET COUNT 232 X10e3 (140-420); RED BLOOD COUNT 3.88 X10e (3.90-5.60); RED CELL DISTRIBUTION WIDTH 16.9 % (11.0-15.5); WHITE BLOOD COUNT 7.4 X10e3 (4.0-10.5)
[2016-10-05 06:04] LABS: DIFF IND NO
[2016-10-05 06:11] LABS: CALCIUM SERUM 8.7 mg/dL (8.4-10.2); CARBON DIOXIDE 30 mmol/L (22-31); CHLORIDE 100 mmol/L (100-111); GLOM FILT RATE Estimated 68.3 mL/min (>60); GLUCOSE FASTING 93 mg/dL (70-110); POTASSIUM 3.5 mmol/L (3.5-5.1); SODIUM 136 mmol/L (135-145)
[2016-10-05 06:12] LABS: BLOOD UREA NITROGEN <5 mg/dL (9-23)
== END 2016-10-06 07:17 | DRG 884 ==
LOC: CED 00:07 → C3A PCU 06:00 → CEDOF 06:00 → CED 06:07 → CEDOF 07:39 → C3A PCU 07:52
PROVIDERS: Emergency Medicine; Family Medicine; Internal Medicine; Internal Medicine Cardiovascular Disease
PROC: 0DJ08ZZ Inspection of Upper Intestinal Tract, Via Natural or Artificial Opening Endoscopic (ICD-10-PCS; principal; 2016-10-03 09:45)
DX: F03.91 Unspecified dementia, unspecified severity, with behavioral disturbance (principal); F05 Delirium due to known physiological condition; R13.10 Dysphagia, unspecified; I11.0 Hypertensive heart disease with heart failure; I50.32 Chronic diastolic (congestive) heart failure; E66.01 Morbid (severe) obesity due to excess calories; N39.0 Urinary tract infection, site not specified; B96.4 Proteus (mirabilis) (morganii) as the cause of diseases classified elsewhere; I48.0 Paroxysmal atrial fibrillation; Z79.01 Long term (current) use of anticoagulants; Z87.891 Personal history of nicotine dependence; E78.5 Hyperlipidemia, unspecified; Z68.30 Body mass index [BMI] 30.0-30.9, adult; K21.9 Gastro-esophageal reflux disease without esophagitis; E53.8 Deficiency of other specified B group vitamins; I45.10 Unspecified right bundle-branch block; Z96.641 Presence of right artificial hip joint; R60.0 Localized edema; M62.3 Immobility syndrome (paraplegic); E87.6 Hypokalemia
CPT/HCPCS: 36415; 36600; 51702; 71010; 71250; 74230; 80048; 80053; 80076; 81003; 82140; 82550; 82553; 82607; 82803; 82947; 83735; 83880; 84132; 84484; 85025; 85027; 87040; 87086; 87088; 87186; 92526; 92610; 92611; 93005; 94640; 94760; 97110; 97116; 97162; 97167; 97530; 97535; 99285; C9113; G8978-GP; G8979-GP; G8980-GP; G8987-GO; G8988-GO; G8996-GN; G8997-GN; G8998-GN; J0360; J0456; J0690; J0696; J1630; J1650; J1940; J3420; J3475; J3480; J7060